=== PATIENT | male | born 1940 | race Asian ===

== ENCOUNTER 2018-04-25 08:54 | Inpatient (IN) | payer MEDICARE, MEDICAID ==
--- NOTE | 2018-04-25 09:29 | ED Physician Chart ---
ED Chief Complaint/HPI - Patient Information Date Seen:: 04/25/18 Time Seen:: 09:20 Chief Complaint:: abnormal labs History of Present Illness:: Patient was sent to the emergency department because of a BUN of 40 and a creatinine of 1.63. Allergies:: Allergies Allergy/AdvReac Type Severity Reaction Status Date / Time No Known Allergies Allergy Verified 04/25/18 09:17 Historian:: Patient Review:: Transfer documents Reviewed ED Review of Systems - Review of Systems General/Constitutional: No fever, No chills Skin: No skin lesions Head: No headache Eyes: No loss of vision ENT: No earache Neck: No neck pain Cardio Vascular: No chest pain Pulmonary: No SOB GI: No nausea, No vomiting, No diarrhea G/U: No dysuria Musculoskeletal: No bone or joint pain Endocrine: No polyuria Psychiatric: Prior psych history Hematopoietic: No bruising Allergic/Immuno: No urticaria Neurological: No syncope, Focal symptoms ED Past Medical History - Past Medical History Past Medical History: CVA/TIA, Other (CVA with left-sided weakness; TIA; anemia ; paranoid schizophrenia) Family History: Other (not available) Social History: Care Facility Surgical History: other (unavailable) Psychiatricy History: Schizophrenia Family Medical History - Family Member Father History Unknown: Yes ED Physical Exam - Physical Examination General/Constitutional: Awake, Well-developed, well-nourished, Alert, No distress Other Gen/Cons comments:: Patient is oriented to the crack month only Head: Atraumatic Eyes: Lids, conjuctiva normal, PERRL Skin: Nl inspection, No rash, No skin lesions, No ecchymosis ENMT: External ears, nose nl, Lips, teeth, gums nl Neck: No nuchal rigidity Respiratory: Nl effort/Exclusion, Clear to Auscultation Cardio Vascular: RRR, No murmur, gallop, rubs GI: No tenderness/rebounding/guarding, No organomegaly, No hernia, Normal BS's Other Extremities comments:: Left arm paralysis Neuro/Psych: No focal deficits (paralysis left arm) ED Labs/Radiology/EKG Results - Lab Results Results: Abnormal Lab Results 04/25/18 09:23 WBC 5.6 RBC 3.67 L Hgb 11.6 L Hct 34.9 L MCV 94.9 MCH 31.5 H MCHC Differential 33.1 RDW 12.4 Plt Count 124 L MPV 8.8 Neutrophils % 65.8 Lymphocytes % 23.2 Monocytes % 10.0 Eosinophils % 0.6 Basophils % 0.4 - Radiology Results Results: Chest x-ray showed prominence of aortic arch, aortic arch calcification and elevation of right hemidiaphragm. Chest x-ray was otherwise normal - EKG Interpretations Rate & Rhythm: normal sinus rhythm with a rate of 73 Gregory: normal Comments:: T flattening in lead 1 and minimal T inversion in lead aVL ED Septic Shock - . Is Septic Shock (SBP<90, OR Lactate>4 mmol\L) present?: No ED Reassessment (Disposition) - Reassessment Reassessment Condition:: Unchanged - Diagnosis Diagnosis:: Renal insufficiency; paranoid schizophrenia; anemia - Patient Disposition Admitted to:: Med/Surg Spoke to:: Siria Santiago Admitting Medical Physician:: Siria Santiago Condition at Disposition:: Stable, Unchanged
[2018-04-25 09:52] LABS: % BASOPHILS 0.4 % (0.0-2.0); % EOSINOPHILS 0.6 % (0.0-5.0); % LYMPHOCYTES 23.2 % (20.0-50.0); % NEUTROPHILS 65.8 % (40.0-80.0); HEMATOCRIT 34.9 % (41.0-60); HEMOGLOBIN 11.6 gm/dL (12-16); LYMPHOCYTE ABSOLUTE 1.3 Th/cmm (1.5-3.0); MEAN CELL VOLUME 94.9 fl (80-99); MEAN CORPUSCULAR HEMOGLOBIN 31.5 pg (27.0-31.0); MEAN CORPUSCULAR HGB CONC 33.1 pg (28.0-36.0); MEAN PLATELET VOLUME 8.8 fl; MONOCYTE ABSOLUTE 0.6 Th/cmm (0.3-1.0); NEUTROPHILE ABSOLUTE 3.7 Th/cmm (1.8-8.0); PLATELET COUNT 124 Th/cmm (150-400); RED BLOOD COUNT 3.67 Mil/cmm (3.80-5.80); RED CELL DISTRIBUTION WIDTH 12.4 % (11.5-20.0); WHITE BLOOD COUNT 5.6 Th/cmm (4.8-10.8)
[2018-04-25 10:11] LABS: BUN - UREA NITROGEN 34 mg/dL (7-25); CALCIUM SERUM 8.9 mg/dL (8.6-10.3); CARBON DIOXIDE 24.7 mEq/L (21.0-31.0); CHLORIDE 106 mEq/L (98-107); CREATININE - SERUM 1.5 mg/dL (0.7-1.3); GLUCOSE 104 mg/dL (70-105); POTASSIUM SERUM 3.7 mEq/L (3.5-5.1); SODIUM SERUM 140 mEq/L (136-145)
--- NOTE | 2018-04-25 10:29 | Diagnostic Imaging Report ---
CHEST X-RAY: AP view INDICATION: Dehydration COMPARISON: None FINDINGS: There is mild prominence of the right paratracheal soft tissues. There is no focal consolidation or pleural effusions The heart is at the upper limits of normal in size. Atherosclerosis is noted. Degenerative changes of the spine are noted. IMPRESSION: No focal consolidation identified Atherosclerotic vascular disease. Right paratracheal soft tissue density probably accentuated by patient rotation and may be due to prominent vasculature in this region. Lymphadenopathy is less likely. Correlation with old exams or follow-up such as CT exam would provide for additional detail and assessment.
[2018-04-25] MEDS ORDERED: Sodium Chloride 0.45% 1,000 ML IV SCH (10:32)
[2018-04-25] MEDS ORDERED: Acetaminophen 500 MG TAB PO PRN ×3 (14:19→15:50)
[2018-04-25] MEDS ORDERED: Non-Formulary Item 1 EA (Acetaminophen [Pain Reliever] 650 MG) PO PRN (15:50)
[2018-04-25] MEDS ORDERED: Fleet Enema 135 mL RC PRN (15:50)
[2018-04-25] MEDS ORDERED: Magnesium Hydroxide (MOM) 30 mL UDC PO PRN (15:50)
[2018-04-25] MEDS ORDERED: Hydrocodone/APAP 10 mg/325 mg Tab PO PRN (15:50)
--- NOTE | 2018-04-25 16:49 | History & Physical ---
ADMIT DATE: 04/25/2018 HISTORY OF PRESENT ILLNESS: This patient is very well known to me. The patient is known to have history of chronic back problem, lumbosacral osteoarthritis, history of kidney stones in the past, also history of increasing renal failure and dehydration, was referred to the Emergency Room at [facility], was admitted with high BUN and creatinine. PAST MEDICAL HISTORY: History of CVA, TIA, anemia, paranoid schizophrenia. PHYSICAL EXAMINATION: GENERAL: Alert, oriented male patient, not in acute distress. VITAL SIGNS: As noted. HEAD: Normal. ENT: Normal. LUNGS: Clear. CARDIOVASCULAR SYSTEM: S1, S2 heard. ABDOMEN: Soft. CENTRAL NERVOUS SYSTEM: The patient is slightly confused. LABORATORY DATA: His white count was normal. BUN and creatinine was high and patient's chest x-ray showed prominent arch. EKG with normal sinus rhythm. DIAGNOSES: Dehydration, acute kidney failure, increasing kidney failure, history of cerebrovascular accident, history of transient ischemic attack in the past, history of arthritis, history of anemia, and history of paranoid schizophrenia. PLAN: The patient is being admitted. We will give him IV fluids and we will have Dr. Jaycob Perla see the patient and will also have the psych doctor, Dr. Rivas see the patient. I will follow the patient. JOB# [id number]
[2018-04-25 19:54] LABS: MAGNESIUM 2.2 mg/dL (1.9-2.7); PHOSPHOROUS 3.3 mg/dL (2.5-5.0)
[2018-04-25] MEDS: Sodium Chloride 0.45% 1,000 ML IV SCH (20:39)
[2018-04-25] MEDS: Ferrous Sulfate 325 MG TAB PO SCH ×2 (20:40→20:50)
[2018-04-25 21:29] LABS: URINE SOURCE CLEAN C
[2018-04-25 21:39] LABS: URINE BILIRUBIN NEGATIVE (NEGATIVE); URINE BLOOD NEGATIVE (NEGATIVE); URINE GLUCOSE (UA) NEGATIVE (NEGATIVE); URINE KETONE NEGATIVE (NEGATIVE); URINE LEUKOCYTE ESTERASE NEGATIVE (NEGATIVE); URINE MICROSCOPIC INDICATED? YES; URINE NITRATE NEGATIVE (NEGATIVE); URINE PROTEIN TRACE mg/dL (NEGATIVE); URINE UROBILINOGEN 0.2 E.U./dL (0.2 - 1.0)
[2018-04-25 21:45] LABS: URINE COLOR YELLOW
[2018-04-25 21:46] LABS: URINE BACTERIA OCCASIONAL /hpf (NONE SEEN); URINE CLARITY CLEAR (CLEAR); URINE EPITHELIAL CELLS NONE SEEN /lpf (FEW); URINE RBC NONE SEEN /hpf (0-5); URINE WBC 0-2 /hpf (0-5)
[2018-04-26 06:03] LABS: % BASOPHILS 0.3 % (0.0-2.0); % EOSINOPHILS 0.2 % (0.0-5.0); % LYMPHOCYTES 17.9 % (20.0-50.0); % MONOCYTES 10.5 % (2.0-10.0); % NEUTROPHILS 71.1 % (40.0-80.0); HEMATOCRIT 35.7 % (41.0-60); LYMPHOCYTE ABSOLUTE 1.2 Th/cmm (1.5-3.0); MEAN CELL VOLUME 93.4 fl (80-99); MEAN CORPUSCULAR HEMOGLOBIN 31.4 pg (27.0-31.0); MEAN CORPUSCULAR HGB CONC 33.6 pg (28.0-36.0); MONOCYTE ABSOLUTE 0.7 Th/cmm (0.3-1.0); NEUTROPHILE ABSOLUTE 4.7 Th/cmm (1.8-8.0); PLATELET COUNT 135 Th/cmm (150-400); RED BLOOD COUNT 3.82 Mil/cmm (3.80-5.80); RED CELL DISTRIBUTION WIDTH 12.3 % (11.5-20.0); WHITE BLOOD COUNT 6.6 Th/cmm (4.8-10.8)
[2018-04-26 06:09] LABS: ALB/GLOB RATIO 0.9 (1.0-1.8); ALBUMIN 3.5 gm/dL (4.2-5.5); ALKALINE PHOSPHATASE 55 U/L (34-104); BILIRUBIN,TOTAL 0.7 mg/dL (0.3-1.0); BUN - UREA NITROGEN 30 mg/dL (7-25); CARBON DIOXIDE 20.7 mEq/L (21.0-31.0); CHLORIDE 105 mEq/L (98-107); CREATININE - SERUM 1.4 mg/dL (0.7-1.3); GLUCOSE 117 mg/dL (70-105); POTASSIUM SERUM 3.7 mEq/L (3.5-5.1); SGOT 36 U/L (13-39); SGPT/ALT 18 U/L (7-52); SODIUM SERUM 137 mEq/L (136-145); TOTAL PROTEIN,SERUM 7.3 gm/dL (6.0-8.3)
[2018-04-26] MEDS ORDERED: LOSARTAN POTASSIUM 100 MG PO SCH (09:00)
[2018-04-26] MEDS ORDERED: Non-Formulary Item 1 EA (Cranberry Fruit Concentrate [Cranberry] 450 MG) PO SCH (09:00)
[2018-04-26] MEDS: Ferrous Sulfate 325 MG TAB PO SCH ×4 (09:08→21:42)
[2018-04-26] MEDS: Aspirin 81mg Chewable Tab PO SCH (09:08)
[2018-04-26] MEDS: Calcium Carb/Vit D 500 mg/200 U Tab PO SCH (09:09)
[2018-04-26] MEDS: Sodium Chloride 0.45% 1,000 ML IV SCH ×2 (11:05→18:47)
[2018-04-26] MEDS ORDERED: Promethazine DM 6.25/15mg-5mL 5 ML SYR PO PRN (13:13)
[2018-04-26] MEDS ORDERED: Albuterol Nebulizer 2.5mg/3mL HHN PRN (13:14)
[2018-04-26] MEDS: cefTRIAXone 1 GM in 0.9% NS 50 ML IV SCH (21:55)
[2018-04-27] MEDS ORDERED: Probiotic Screen MC PRN (08:29)
[2018-04-27] MEDS ORDERED: Influenza Vaccine (65 yr & older) 0.5 ml Syr IM ONE (09:00)
[2018-04-27] MEDS: Ferrous Sulfate 325 MG TAB PO SCH ×3 (09:23→20:46)
[2018-04-27] MEDS: Calcium Carb/Vit D 500 mg/200 U Tab PO SCH (09:23)
[2018-04-27] MEDS: Aspirin 81mg Chewable Tab PO SCH (09:23)
[2018-04-27] MEDS: Lactobacillus Rhamnosus GG 15 Billion CFU CAP.SPRINK PO SCH (09:24)
[2018-04-27] MEDS: cefTRIAXone 1 GM in 0.9% NS 50 ML IV SCH (20:46)
[2018-04-27] MEDS: Sodium Chloride 0.45% 1,000 ML IV SCH (20:52)
--- NOTE | 2018-04-28 00:36 | Progress Notes ---
DATE: 04/27/2018 SUBJECTIVE: The patient was seen in his room. The patient complains of episodic low back pain with good relief from current medication. Otherwise, the patient appears to be comfortable, in no acute distress. OBJECTIVE: VITAL SIGNS: Temperature 97.7, heart rate 66, blood pressure 143/66, respiration 18 and 96% on room air. HEENT: Head is atraumatic and normocephalic. Eyes: Bilateral conjunctivae are clear. Bilateral pupils are equally round and reactive. NECK: Supple. No JVD. CARDIOVASCULAR: S1 and S2, without murmur. PULMONARY: Clear to auscultation. GASTROINTESTINAL: Soft and nontender without guarding. Positive bowel sounds. MUSCULOSKELETAL: No clubbing. No cyanosis noted. ASSESSMENT: 1. Acute kidney failure. 2. Dehydration. 3. History of cerebrovascular accident. 4. Chronic pain syndrome. 5. Anemia. 6. Hypertension. PLAN: We will keep the patient inpatient. I will follow up with window air conditioner installer. We are also going to monitor the patient's electrolytes. Treatment plans were discussed with the patient's nurse. Treatment plans were discussed with Dr. Santiago. JOB# [id number]
[2018-04-28 06:48] LABS: % BASOPHILS 0.2 % (0.0-2.0); % EOSINOPHILS 0.3 % (0.0-5.0); % LYMPHOCYTES 20.9 % (20.0-50.0); % MONOCYTES 8.5 % (2.0-10.0); % NEUTROPHILS 70.1 % (40.0-80.0); HEMOGLOBIN 11.1 gm/dL (12-16); LYMPHOCYTE ABSOLUTE 1.7 Th/cmm (1.5-3.0); MEAN CELL VOLUME 94.2 fl (80-99); MEAN CORPUSCULAR HEMOGLOBIN 30.9 pg (27.0-31.0); MEAN CORPUSCULAR HGB CONC 32.8 pg (28.0-36.0); MEAN PLATELET VOLUME 8.7 fl; MONOCYTE ABSOLUTE 0.7 Th/cmm (0.3-1.0); NEUTROPHILE ABSOLUTE 5.5 Th/cmm (1.8-8.0); PLATELET COUNT 152 Th/cmm (150-400); RED CELL DISTRIBUTION WIDTH 12.2 % (11.5-20.0); WHITE BLOOD COUNT 7.9 Th/cmm (4.8-10.8)
[2018-04-28 07:08] LABS: ALB/GLOB RATIO 0.9 (1.0-1.8); ALBUMIN 3.2 gm/dL (4.2-5.5); ALKALINE PHOSPHATASE 52 U/L (34-104); ANION GAP 16.1 (7.0-16.0); BILIRUBIN,TOTAL 0.5 mg/dL (0.3-1.0); BUN - UREA NITROGEN 28 mg/dL (7-25); CALCIUM SERUM 9.1 mg/dL (8.6-10.3); CARBON DIOXIDE 21.7 mEq/L (21.0-31.0); CHLORIDE 107 mEq/L (98-107); CREATININE - SERUM 1.3 mg/dL (0.7-1.3); GLUCOSE 120 mg/dL (70-105); POTASSIUM SERUM 3.8 mEq/L (3.5-5.1); SGOT 33 U/L (13-39); SGPT/ALT 24 U/L (7-52); SODIUM SERUM 141 mEq/L (136-145); TOTAL PROTEIN,SERUM 6.8 gm/dL (6.0-8.3)
[2018-04-28] MEDS: Aspirin 81mg Chewable Tab PO SCH (08:42)
[2018-04-28] MEDS: Ferrous Sulfate 325 MG TAB PO SCH ×3 (08:42→21:10)
[2018-04-28] MEDS: Lactobacillus Rhamnosus GG 15 Billion CFU CAP.SPRINK PO SCH (08:42)
[2018-04-28] MEDS: Calcium Carb/Vit D 500 mg/200 U Tab PO SCH (08:42)
[2018-04-28] MEDS: Sodium Chloride 0.45% 1,000 ML IV SCH (18:48)
[2018-04-28] MEDS: cefTRIAXone 1 GM in 0.9% NS 50 ML IV SCH (21:09)
[2018-04-29 06:42] LABS: % BASOPHILS 0.3 % (0.0-2.0); % EOSINOPHILS 0.9 % (0.0-5.0); % LYMPHOCYTES 28.4 % (20.0-50.0); % MONOCYTES 9.5 % (2.0-10.0); % NEUTROPHILS 60.9 % (40.0-80.0); EOSINOPHILE ABSOLUTE 0.1 Th/cmm (0.1-0.4); HEMATOCRIT 36.3 % (41.0-60); HEMOGLOBIN 12.1 gm/dL (12-16); LYMPHOCYTE ABSOLUTE 1.7 Th/cmm (1.5-3.0); MEAN CELL VOLUME 93.1 fl (80-99); MEAN CORPUSCULAR HGB CONC 33.3 pg (28.0-36.0); MEAN PLATELET VOLUME 8.6 fl; MONOCYTE ABSOLUTE 0.6 Th/cmm (0.3-1.0); NEUTROPHILE ABSOLUTE 3.6 Th/cmm (1.8-8.0); RED CELL DISTRIBUTION WIDTH 12.3 % (11.5-20.0)
[2018-04-29 06:46] LABS: PLATELET COUNT 184 Th/cmm (150-400)
[2018-04-29 07:05] LABS: ALBUMIN 3.5 gm/dL (4.2-5.5); ALKALINE PHOSPHATASE 57 U/L (34-104); ANION GAP 17.9 (7.0-16.0); BILIRUBIN,TOTAL 0.4 mg/dL (0.3-1.0); BUN - UREA NITROGEN 27 mg/dL (7-25); CALCIUM SERUM 9.5 mg/dL (8.6-10.3); CHLORIDE 107 mEq/L (98-107); CREATININE - SERUM 1.3 mg/dL (0.7-1.3); GLUCOSE 115 mg/dL (70-105); POTASSIUM SERUM 3.9 mEq/L (3.5-5.1); SGOT 32 U/L (13-39); SGPT/ALT 28 U/L (7-52); SODIUM SERUM 141 mEq/L (136-145); TOTAL PROTEIN,SERUM 7.2 gm/dL (6.0-8.3)
[2018-04-29] MEDS: Aspirin 81mg Chewable Tab PO SCH ×2 (08:49→10:04)
[2018-04-29] MEDS: Calcium Carb/Vit D 500 mg/200 U Tab PO SCH ×2 (08:49→08:55)
[2018-04-29] MEDS: Lactobacillus Rhamnosus GG 15 Billion CFU CAP.SPRINK PO SCH (08:49)
[2018-04-29] MEDS: Ferrous Sulfate 325 MG TAB PO SCH ×3 (08:49→13:29)
--- NOTE | 2018-04-29 09:03 | Diagnostic Imaging Report ---
Bilateral carotid Doppler ultrasound exam HISTORY: Dizziness, syncope Sonographic sector images were obtained through the carotid bifurcation regions bilaterally. Associated Doppler data was obtained. The exam of the right side demonstrates generalized intimal thickening through the bifurcation region. No significant focal plaque is seen. Antegrade vertebral artery flow. Velocities and flow ratios are normal (ICC/CCA equals 0.75). The exam of the left side also demonstrates generalized intimal thickening. Mild to moderate focal plaque noted in the common carotid artery and carotid bulb region with slight irregularity. Changes result in an approximate 25-30% narrowing in the carotid bulb area. Antegrade vertebral artery flow. Velocities and flow ratios are normal (ICC/CCA equals 0.44). IMPRESSION: 1. Evidence of mild to moderate atherosclerotic changes on the left side (approximate 30% narrowing). 2. Evidence of mild atherosclerotic changes on the right side.
--- NOTE | 2018-04-29 10:16 | Diagnostic Imaging Report ---
CT scan of the brain without intravenous contrast HISTORY: Stroke, CVA Total DLP equals 772 CTDI equals 40.3 Axial sections were obtained from the base of the skull the vertex. There is enlargement of the ventricular system along with enlargement of cerebral sulci and subarachnoid cisterns reflecting generalized atrophy. Hypodensity seen throughout the supratentorial white matter regions. No mass effect. The findings may reflect chronic small vessel ischemic disease. In addition, several subcentimeter hypodense foci are noted within the right and left parietal white matter regions and within the basal ganglia areas bilaterally. The findings suggest changes with old lacunar infarcts. No acute intracerebral hemorrhage. Again, no mass effect or shift of midline structures. No extra-axial masses or abnormal fluid collections. Mucosal thickening noted within the ethmoid sinuses bilaterally and within the maxillary sinuses. Atherosclerotic calcification seen in the region of the vertebral and basilar arteries at the base of the skull. IMPRESSION: 1. No acute abnormalities 2. Cerebral atrophy 3. Extensive supratentorial white matter changes. The findings may be associated with chronic small vessel ischemic disease 4. Multiple subcentimeter foci within the supratentorial white matter regions as noted above. The findings may be associated with old lacunar infarcts 5. Mucosal thickening within the ethmoid and maxillary sinuses If necessary, an MRI exam would provide additional assessment and evaluation.
--- NOTE | 2018-04-29 16:30 | Internal Medicine Prog Note ---
Internal Medicine Subjective - Subjective Patient seen and examined:: chart reviewed Patient is:: other (c/o lbp) Patient Complaints of:: congestion Per staff patient has:: no adverse event Internal Medicine Objective - Results Result Diagrams: 04/29/18 05:50 04/29/18 05:50 Recent Labs: Laboratory Last Values WBC 6.0 Th/cmm (4.8-10.8) 04/29/18 05:50 RBC 3.90 Mil/cmm (3.80-5.80) 04/29/18 05:50 Hgb 12.1 gm/dL (12-16) 04/29/18 05:50 Hct 36.3 % (41.0-60) L 04/29/18 05:50 MCV 93.1 fl (80-99) 04/29/18 05:50 MCH 31.0 pg (27.0-31.0) 04/29/18 05:50 MCHC Differential 33.3 pg (28.0-36.0) 04/29/18 05:50 RDW 12.3 % (11.5-20.0) 04/29/18 05:50 Plt Count 184 Th/cmm (150-400) D 04/29/18 05:50 MPV 8.6 fl 04/29/18 05:50 Neutrophils % 60.9 % (40.0-80.0) 04/29/18 05:50 Lymphocytes % 28.4 % (20.0-50.0) 04/29/18 05:50 Monocytes % 9.5 % (2.0-10.0) 04/29/18 05:50 Eosinophils % 0.9 % (0.0-5.0) 04/29/18 05:50 Basophils % 0.3 % (0.0-2.0) 04/29/18 05:50 Sodium 141 mEq/L (136-145) 04/29/18 05:50 Potassium 3.9 mEq/L (3.5-5.1) 04/29/18 05:50 Chloride 107 mEq/L (98-107) 04/29/18 05:50 Carbon Dioxide 20.0 mEq/L (21.0-31.0) L 04/29/18 05:50 Anion Gap 17.9 (7.0-16.0) H 04/29/18 05:50 BUN 27 mg/dL (7-25) H 04/29/18 05:50 Creatinine 1.3 mg/dL (0.7-1.3) 04/29/18 05:50 Est GFR ( Amer) TNP 04/29/18 05:50 Est GFR (Non-Af Amer) TNP 04/29/18 05:50 BUN/Creatinine Ratio 20.8 04/29/18 05:50 Glucose 115 mg/dL (70-105) H 04/29/18 05:50 Calcium 9.5 mg/dL (8.6-10.3) 04/29/18 05:50 Phosphorus 3.3 mg/dL (2.5-5.0) 04/25/18 19:11 Magnesium 2.2 mg/dL (1.9-2.7) 04/25/18 19:11 Total Bilirubin 0.4 mg/dL (0.3-1.0) 04/29/18 05:50 AST 32 U/L (13-39) 04/29/18 05:50 ALT 28 U/L (7-52) 04/29/18 05:50 Alkaline Phosphatase 57 U/L (34-104) 04/29/18 05:50 Total Protein 7.2 gm/dL (6.0-8.3) 04/29/18 05:50 Albumin 3.5 gm/dL (4.2-5.5) L 04/29/18 05:50 Globulin 3.7 gm/dL 04/29/18 05:50 Albumin/Globulin Ratio 1.0 (1.0-1.8) 04/29/18 05:50 Urine Source CLEAN C 04/25/18 18:28 Urine Color YELLOW 04/25/18 18:28 Urine Clarity CLEAR (CLEAR) 04/25/18 18:28 Urine pH 6.0 (4.6 - 8.0) 04/25/18 18:28 Ur Specific [place] 1.025 (1.005-1.030) 04/25/18 18:28 Urine Protein TRACE mg/dL (NEGATIVE) 04/25/18 18:28 Urine Glucose (UA) NEGATIVE mg/dL (NEGATIVE) 04/25/18 18:28 Urine Ketones NEGATIVE mg/dL (NEGATIVE) 04/25/18 18:28 Urine Blood NEGATIVE (NEGATIVE) 04/25/18 18:28 Urine Nitrate NEGATIVE (NEGATIVE) 04/25/18 18:28 Urine Bilirubin NEGATIVE (NEGATIVE) 04/25/18 18:28 Urine Urobilinogen 0.2 E.U./dL (0.2 - 1.0) 04/25/18 18:28 Ur Leukocyte Esterase NEGATIVE (NEGATIVE) 04/25/18 18:28 Urine RBC NONE SEEN /hpf (0-5) 04/25/18 18:28 Urine WBC 0-2 /hpf (0-5) 04/25/18 18:28 Ur Epithelial Cells NONE SEEN /lpf (FEW) 04/25/18 18:28 Urine Bacteria OCCASIONAL /hpf (NONE SEEN) 04/25/18 18:28 Urine Osmolality 682 mOsmol/kg 04/25/18 18:28 Ur Random Sodium 101 mmol/L 04/25/18 18:28 Ur Random Potassium 41.0 mmol/L 04/25/18 18:28 Urine Creatinine 139.0 mg/dl (39.0-259.0) 04/25/18 18:28 - Physical Exam Vitals and I&O: Vital Signs Temp 98.0 F 04/29/18 16:03 Pulse 80 04/29/18 16:03 Resp 19 04/29/18 16:03 BP 118/69 04/29/18 16:03 Pulse Ox 95 04/29/18 16:03 Intake & Output 04/28/18 04/29/18 04/29/18 18:59 06:59 18:59 Intake Total 1700 100 Balance 1700 100 Weight (lbs) 74.389 kg 74.389 kg Intake: Intake, IV Amount 1000 Sodium Chloride 0.45% 1, 1000 000 ml @ 50 mls/hr IV . Q20H [facility] Rx#:[id number] Oral 700 100 Other: # Voids 3 2 Weight Source Bedscale Bedscale Active Medications: Current Medications Acetaminophen (Tylenol) 650 mg PO Q6HR PRN PRN Reason: PAIN Stop: 06/24/18 14:16 Last Admin: 04/25/18 15:49 Dose: 650 mg Acetaminophen/Hydrocodone Bitart ([place] 10 Mg/325 Mg) 1 tab PO Q4HR PRN PRN Reason: Pain (Severe) Stop: 06/24/18 15:49 Albuterol Sulfate (Albuterol 2.5mg/3ml Neb Ud) 2.5 mg HHN Q4H PRN PRN Reason: sob Stop: 06/25/18 13:13 Last Admin: 04/27/18 13:01 Dose: 2.5 mg Aspirin (Aspirin Chewable) 81 mg PO DAILY [facility] Stop: 06/25/18 08:59 Last Admin: 04/29/18 10:04 Dose: Not Given Bisacodyl (Dulcolax 10 Mg Supp) 10 mg RC DAILY PRN PRN Reason: Constipation Stop: 06/24/18 15:49 Calcium/Vitamin D (Oscal W/Vitamin D) 1 tab PO DAILY [facility] Stop: 06/25/18 08:59 Last Admin: 04/29/18 08:55 Dose: Not Given Docusate Sodium (Colace) 100 mg PO DAILY [facility] Stop: 06/25/18 08:59 Last Admin: 04/29/18 08:49 Dose: 100 mg Ferrous Sulfate (Iron) 325 mg PO TID [facility] Stop: 06/24/18 20:59 Last Admin: 04/29/18 13:29 Dose: Not Given Sodium Chloride (Nacl 0.45%) 1,000 mls @ 50 mls/hr IV .Q20H [facility] Stop: 06/25/18 18:04 Last Admin: 04/28/18 18:48 Dose: 50 mls/hr Ceftriaxone Sodium 1 gm/ (Sodium Chloride) 50 mls @ 100 mls/hr IV HS [facility] Stop: 06/25/18 20:59 Last Admin: 04/28/18 21:09 Dose: 100 mls/hr Lactobacillus Rhamnosus (Culturelle 15b) 1 each PO DAILY [facility] Stop: 06/26/18 08:59 Last Admin: 04/29/18 08:49 Dose: 1 each Losartan Potassium (Cozaar) 100 mg PO DAILY [facility] Stop: 06/25/18 08:59 Last Admin: 04/29/18 08:49 Dose: 100 mg Magnesium Hydroxide (Milk Of Magnesia) 30 ml PO HS PRN PRN Reason: Constipation Stop: 06/24/18 15:49 Miscellaneous (Probiotic Screen) 1 ea MC PRN PRN PRN Reason: PROTOCOL Stop: 06/26/18 08:28 Olanzapine (Zyprexa) 5 mg PO DAILY [facility]; Protocol Stop: 06/25/18 08:59 Last Admin: 04/29/18 08:49 Dose: 5 mg Olanzapine (Zyprexa) 10 mg PO HS [facility]; Protocol Stop: 06/24/18 20:59 Last Admin: 04/28/18 21:09 Dose: 10 mg Promethazine HCl/Dextromethorphan (Phenergan Dm 6.25/15mg-5 Ml) 10 ml PO Q6HR PRN PRN Reason: Cough Stop: 06/25/18 13:12 Sodium Phosphate (Fleet Enema) 135 ml RC PRN PRN PRN Reason: Constipation Stop: 06/24/18 15:49 Trazodone HCl (Desyrel) 50 mg PO HS [facility]; Protocol Stop: 06/24/18 20:59 Last Admin: 04/28/18 21:09 Dose: 50 mg General: other (c/o lbp), no weak HEENT: NC/AT Neck: Supple Lungs: CTAB Cardiovascular: RRR, Normal S1, Normal S2 Abdomen: soft Extremities: clear Neurological: no change Internal Medicine Assmt/Plan - Assessment Assessment: acute kidney failure dehydration h/o cva chronic pain syndrome anemia htn - Plan Plan: as per order sheet Nutritional Asmnt/Malnutr-PDOC - Dietary Evaluation Malnutrition Findings (Please click <Entered> for more info): Nutritional Asmnt/Malnutrition Start: 04/29/18 14: 04 Text: Status: Complete Freq: Protocol: Document 04/29/18 14:04 LCHENG (Rec: 04/29/18 14:15 [email or web address] [email or web address]) Nutritional Asmnt/Malnutrition Patient General Information Nutritional Screening Moderate Risk Diagnosis renal failure Pertinent Medical Hx/Surgical Hx CVA/TIA, anemia, paranoid schizophrenia Subjective Information Pt seen sitting in keo-chair eating lunch by himself at time of visit. Pt appeared to chew food slowly. Pt has some missing teeth noted. Pt is confused, not able to participate in communication. Per EMR, PO intake 25% since admitted. Current Diet Order/ [facility], EMMETT Pertinent Medications oscal w/vit D Pertinent Labs 04/29 BUN 27, Glucose 115 1/6 BUN 28, Glucose 120 1/4 BUN 30, Cr 1.4, Glucose 117 Nutritional Hx/Data Height 1.7 m Height (Calculated Centimeters) 170.2 Current Weight (lbs) 74.389 kg Weight (Calculated Kilograms) 74.4 Weight (Calculated Grams) 80435.1 [place] Body Weight 148 Body Mass Index (BMI) 25.7 Weight Status Overweight GI Symptoms GI Symptoms None Last BM none noted Difficult in: None Skin Integrity/Comment: intact Current %PO Poor (25-49%) Estimated Nutritional Goals BEE in Kcals: Using Current wt Calories/Kcals/Kg 25-30 Kcals Calculated 8328-5200 Protein: Using Current wt Protein g/k.8-1 Protein Calculated 60-75 Fluid: ml 1875-2250ml (1ml/kcal) Nutritional Problem 2. Problem Problem chewing difficulty Etiology missing teeth and confusion Signs/Symptoms: pt chewing food slowly and PO intake 25% 1. Problem Problem altered nutrition related labs Etiology renal dysfunction Signs/Symptoms: BUN 27 Malnutrition Alert Is there a minimum of two criteria No selected? Query Text:Check all the applicable criteria. A minimum of two criteria are recommended for diagnosis of either severe or non-severe malnutrition. Malnutrition Related to Morbid Obesity Malnutrition related to morbid obesity No Intervention/Recommendation Comments 1. Downgrade food texture to [facility] soft ground d/t pt having chewing difficulty. Continue with EMMETT diet. Nurses to assist pt with meals as needed . 2. Monitor PO intake, wt, labs and skin integrity 3. If PO intake continue <50%, consider adding nutrition oral supplements. 4. F/U as high risk in 2-3 days, 05/01-05/02 Expected Outcomes/Goals Expected Outcomes/Goals 1. PO intake to improve and meet at least 75% of nutritional needs. 2. Wt stability, skin to remain intact, labs to approach WNL.
--- NOTE | 2018-04-29 16:43 | Consultation ---
Consult Note - Consult Note Service Date: 04/29/18 Referring Physician: Siria Santiago Consult Note: PHYSICIAN Consultation Note: Date of Admission: 04/25/18 Purpose of Consultation: Chief Complaint: History of Present Illness: Patient KING WHALEN was admitted to location Medical[facility]Surgical Unit I with RENAL FAILURE. CREATININE WAS NOTED TO BE 1.5 UPON ADMISSION AND IS NOW 1.3 WHICH IS LIKELY PATIENT'S BASELINE WITH IVF. DIFFICULT TO ASCERTAIN BUT DOES NOT APPEAR TO HAVE H/O NSAID OR HERBAL MEDICATION USE. Past Medical History: Diagnoses ANEMIA, UNSPECIFIED (04/25/18) DEHYDRATION (04/25/18) PARANOID SCHIZOPHRENIA (04/25/18) UNSPECIFIED OSTEOARTHRITIS, UNSPECIFIED SITE (04/25/18) ACUTE KIDNEY FAILURE, UNSPECIFIED (04/25/18) WEAKNESS (04/25/18) PRSNL HX OF TIA (TIA), AND CEREB INFRC W/O RESID DEFICITS (04/25/18) Allergies Allergy/AdvReac Type Severity Reaction Status Date / Time No Known Allergies Allergy Verified 04/25/18 09:17 Vital Signs Temp 98.0 F 04/29/18 16:03 Pulse 80 04/29/18 16:03 Resp 19 04/29/18 16:03 BP 118/69 04/29/18 16:03 Pulse Ox 95 04/29/18 16:03 Intake & Output 04/28/18 04/29/18 04/29/18 18:59 06:59 18:59 Intake Total 1700 100 Balance 1700 100 Weight (lbs) 74.389 kg 74.389 kg Intake: Intake, IV Amount 1000 Sodium Chloride 0.45% 1, 1000 000 ml @ 50 mls/hr IV . Q20H RANDOLPH Rx#:[id number] Oral 700 100 Other: # Voids 3 2 Weight Source Bedscale Bedscale Laboratory Results - last 24 hr 04/29/18 04/29/18 05:50 05:50 WBC 6.0 RBC 3.90 Hgb 12.1 Hct 36.3 L MCV 93.1 MCH 31.0 MCHC Differential 33.3 RDW 12.3 Plt Count 184 D MPV 8.6 Neutrophils % 60.9 Lymphocytes % 28.4 Monocytes % 9.5 Eosinophils % 0.9 Basophils % 0.3 Sodium 141 Potassium 3.9 Chloride 107 Carbon Dioxide 20.0 L Anion Gap 17.9 H BUN 27 H Creatinine 1.3 Est GFR ( Amer) TNP Est GFR (Non-Af Amer) TNP BUN/Creatinine Ratio 20.8 Glucose 115 H Calcium 9.5 Total Bilirubin 0.4 AST 32 ALT 28 Alkaline Phosphatase 57 Total Protein 7.2 Albumin 3.5 L Globulin 3.7 Albumin/Globulin Ratio 1.0 Home Medication Medication Instructions Recorded Type Acetaminophen [Pain Relief Extra 500 mg PO Q6H PRN 04/25/18 History Strength] Acetaminophen [Pain Reliever] 2 tab PO Q8H PRN 04/25/18 History Acetaminophen [Pain Reliever] 650 mg PO Q6H PRN 04/25/18 History Aspirin [Aspirin Chewable] 1 tab PO DAILY 04/25/18 History Bisacodyl [Dulcolax 10 Mg Supp] 10 mg RC DAILY PRN 04/25/18 History Calcium Carbonate/Vitamin D3 1 tab PO DAILY 04/25/18 History [Calcium 500-Vit D3 200 Tablet] Cranberry Fruit Concentrate 450 mg PO DAILY 04/25/18 History [Cranberry] Docusate Sodium [Colace] 100 mg PO DAILY 04/25/18 History Ferrous Sulfate [Iron] 1 tab PO TID 04/25/18 History Fleet Enema 135 ml RC PRN PRN 04/25/18 History Hydrocodone/APAP 10 mg/325 mg 1 tab PO Q4HR PRN 04/25/18 History [[place] 10 mg/325 mg] Losartan Potassium 100 mg PO DAILY 04/25/18 History Magnesium Hydroxide [Milk of 30 ml PO HS PRN 04/25/18 History Magnesia] OLANZapine [ZyPREXA] 5 mg PO DAILY 04/25/18 History OLANZapine [ZyPREXA] 10 mg PO HS 04/25/18 History Trazodone HCl 50 mg PO HS 04/25/18 History Current Medications Generic Name Dose Route Start Last Admin Trade Name Freq PRN Reason Stop Dose Admin Acetaminophen 650 mg 04/25/18 14:20 04/25/18 15:49 Tylenol PO 06/24/18 14:16 650 mg Q6HR PRN Administration PAIN Acetaminophen/Hydrocodone Bitart 1 tab 04/25/18 15:50 [place] 10 Mg/325 Mg PO 06/24/18 15:49 Q4HR PRN Pain (Severe) Albuterol Sulfate 2.5 mg 04/26/18 13:14 04/27/18 13:01 Albuterol 2.5mg/3ml Neb Ud HHN 06/25/18 13:13 2.5 mg Q4H PRN Administration sob Aspirin 81 mg 04/26/18 09:00 04/29/18 10:04 Aspirin Chewable PO 06/25/18 08:59 Not Given DAILY RANDOLPH Bisacodyl 10 mg 04/25/18 15:50 Dulcolax 10 Mg Supp RC 06/24/18 15:49 DAILY PRN Constipation Calcium/Vitamin D 1 tab 04/26/18 09:00 04/29/18 08:55 Oscal W/Vitamin D PO 06/25/18 08:59 Not Given DAILY RANDOLPH Docusate Sodium 100 mg 04/26/18 09:00 04/29/18 08:49 Colace PO 06/25/18 08:59 100 mg DAILY RANDOLPH Administration Ferrous Sulfate 325 mg 04/25/18 21:00 04/29/18 13:29 Iron PO 06/24/18 20:59 Not Given TID RANDOLPH Sodium Chloride 1,000 mls @ 50 mls/hr 04/26/18 18:05 04/28/18 18:48 Nacl 0.45% IV 06/25/18 18:04 50 mls/hr .Q20H RANDOLPH Administration Ceftriaxone Sodium 1 gm/ 50 mls @ 100 mls/hr 04/26/18 21:00 04/28/18 21:09 Sodium Chloride IV 06/25/18 20:59 100 mls/hr HS RANDOLPH Administration Lactobacillus Rhamnosus 1 each 04/27/18 09:00 04/29/18 08:49 Culturelle 15b PO 06/26/18 08:59 1 each DAILY RANDOLPH Administration Losartan Potassium 100 mg 04/26/18 09:00 04/29/18 08:49 Cozaar PO 06/25/18 08:59 100 mg DAILY RANDOLPH Administration Magnesium Hydroxide 30 ml 04/25/18 15:50 Milk Of Magnesia PO 06/24/18 15:49 HS PRN Constipation Miscellaneous 1 ea 04/27/18 08:29 Probiotic Screen MC 06/26/18 08:28 PRN PRN PROTOCOL Olanzapine 5 mg 04/26/18 09:00 04/29/18 08:49 Zyprexa PO 06/25/18 08:59 5 mg DAILY RANDOLPH Administration Protocol Olanzapine 10 mg 04/25/18 21:00 04/28/18 21:09 Zyprexa PO 06/24/18 20:59 10 mg HS RANDOLPH Administration Protocol Promethazine HCl/Dextromethorphan 10 ml 04/26/18 13:13 Phenergan Dm 6.25/15mg-5 Ml PO 06/25/18 13:12 Q6HR PRN Cough Sodium Phosphate 135 ml 04/25/18 15:50 Fleet Enema RC 06/24/18 15:49 PRN PRN Constipation Trazodone HCl 50 mg 04/25/18 21:00 04/28/18 21:09 Desyrel PO 06/24/18 20:59 50 mg HS RANDOLPH Administration Protocol Review of Systems: A 12 point ROS was reviewed with the pertinent positive and negatives noted in the HPI. Social History Smoking Status Never smoker Drug Use No Alcohol Use No Family Medical History Family Medical History Start: 04/25/18 11: 02 Freq: ONCE Status: Active Protocol: Document 04/25/18 14:43 PTSAI (Rec: 04/25/18 14:43 [email or web address] [id number]) Family Medical History Father History Unknown Yes Physical Exam: General: NO DISTRESS, AWAKE, ALERT Cardio: S1 S2 REGULAR NO RUB Respiratory: CLEAR Extremities: NO EDEMA Assessment: 1. NONOLIGURIC LACIE SECONDARY TO DEHYDRATION, IMPROVED. CONT GENTLE IV HYDRATION 2. HYPERTENSION, STABLE. CONT LOSARTAN 3. ANEMIA, UNSPECIFIED, STABLE. CONT FERROUS SULFATE 4. PARANOID SCHIZOPHRENIA, STABLE. CONT CURRENT REGIMEN 5. OLD TIA, CVA STABLE. CONT ASA Plan: SEE ABOVE THANK YOU, GIVEN IMPROVEMENT IN RENAL FUNCTION, WILL SEE PRN Signed, Micki Moreno M.D. [id number]
--- NOTE | 2018-04-30 00:06 | Consultation ---
DATE OF CONSULTATION: 04/29/2018 IDENTIFYING INFORMATION: The patient is an 78-year-old male. REASON FOR CONSULTATION AND HISTORY OF PRESENT ILLNESS: I was asked to see this patient who has a history of paranoid schizophrenia. The patient with history also of chronic back problems, lumbosacral pain, osteoarthritis, history of kidney stones in the past, increasing renal failure, dehydration, referred and was admitted because of high BUN and creatinine. The patient was a poor historian with a history of CVA, TIA, and anemia. PAST PSYCHIATRIC HISTORY: Chronic paranoid schizophrenia. The patient himself was a poor historian, unable to tell me the date, where he is, why he is here, is trying to use his hands, though he speaks Frisian. He is not acting anyway dangerous. ALLERGIES: The patient has known drug allergies. The patient's medical condition as described before. MEDICATIONS: The patient is currently on olanzapine 5 mg daily and 10 mg at bedtime with no side effects. Trazodone 50 mg at bedtime. FAMILY AND SOCIAL HISTORY: Unobtainable. MENTAL STATUS EXAMINATION: The patient was appropriately dressed, not very well groomed, unable to participate in a meaningful conversation. He was trying to use his fingers to tell me how old he is and was making circles, unable to express himself, unable to test his memory, concentration. He is not acting anyway dangerous, sleeping well, eating well, compliant with medication with no side effects. His long and short term memory is poor. Insight and judgment are questionable. Unable to answer questions regarding suicide, homicide or hallucination. IMPRESSION: History of chronic paranoid schizophrenia. PLAN: I would recommend to continue the Zyprexa. If the patient is acting out, he may need to be transferred to [facility]. Thank you very much for allowing me to participate in the care of this most interesting gentleman. [facility]# [id number]
== END 2018-04-29 20:40 | DRG 871 ==
LOC: ER 08:54 → MSI 10:25
PROVIDERS: ADMIT Internal Medicine; ATTEND Internal Medicine
DX: A41.9 Sepsis, unspecified organism (principal); G92 Toxic encephalopathy; N17.9 Acute kidney failure, unspecified; F20.0 Paranoid schizophrenia; E86.0 Dehydration; I12.9 Hypertensive chronic kidney disease with stage 1 through stage 4 chronic kidney disease, or unspecified chronic kidney disease; N18.3 Chronic kidney disease, stage 3 (moderate); M19.90 Unspecified osteoarthritis, unspecified site; D64.9 Anemia, unspecified; N28.9 Disorder of kidney and ureter, unspecified; G89.4 Chronic pain syndrome; M54.9 Dorsalgia, unspecified; Z87.442 Personal history of urinary calculi; Z86.73 Personal history of transient ischemic attack (TIA), and cerebral infarction without residual deficits; Z23 Encounter for immunization
CPT/HCPCS: 36415-UA; 70450-TC; 71045-TC; 80048-TC; 80053-TC; 81001-TC; 82436-90; 82570-TC; 83735-TC; 83935-90; 84100-TC; 84133-TC; 84300-TC; 85025-TC; 87070; 87086-90; 93005; 93880-TC; 94760; J0696; J7030; J7051; J7613; Z7610

== ENCOUNTER 2018-05-03 15:32 | Inpatient (IN) | payer MEDICARE, MEDICAID ==
[2018-05-03] MEDS ORDERED: Lactated Ringer 1,000 ML IV ONE (16:16)
[2018-05-03 16:44] LABS: % BASOPHILS 0.4 % (0.0-2.0); % EOSINOPHILS 1.2 % (0.0-5.0); % LYMPHOCYTES 21.4 % (20.0-50.0); % MONOCYTES 6.4 % (2.0-10.0); % NEUTROPHILS 70.6 % (40.0-80.0); EOSINOPHILE ABSOLUTE 0.1 Th/cmm (0.1-0.4); HEMATOCRIT 33.1 % (41.0-60); HEMOGLOBIN 10.9 gm/dL (12-16); MEAN CELL VOLUME 93.3 fl (80-99); MEAN CORPUSCULAR HEMOGLOBIN 30.8 pg (27.0-31.0); MEAN CORPUSCULAR HGB CONC 33.1 pg (28.0-36.0); MEAN PLATELET VOLUME 7.6 fl; MONOCYTE ABSOLUTE 0.6 Th/cmm (0.3-1.0); NEUTROPHILE ABSOLUTE 6.5 Th/cmm (1.8-8.0); PLATELET COUNT 279 Th/cmm (150-400); RED BLOOD COUNT 3.55 Mil/cmm (3.80-5.80); RED CELL DISTRIBUTION WIDTH 12.4 % (11.5-20.0); WHITE BLOOD COUNT 9.2 Th/cmm (4.8-10.8)
[2018-05-03 17:26] LABS: ALB/GLOB RATIO 0.9 (1.0-1.8); ALBUMIN 3.5 gm/dL (4.2-5.5); ALKALINE PHOSPHATASE 56 U/L (34-104); ANION GAP 13.6 (7.0-16.0); BILIRUBIN,TOTAL 0.5 mg/dL (0.3-1.0); BUN - UREA NITROGEN 43 mg/dL (7-25); CALCIUM SERUM 9.8 mg/dL (8.6-10.3); CARBON DIOXIDE 27.3 mEq/L (21.0-31.0); CHLORIDE 109 mEq/L (98-107); CREATININE - SERUM 1.6 mg/dL (0.7-1.3); GLUCOSE 122 mg/dL (70-105); MAGNESIUM 2.7 mg/dL (1.9-2.7); PHOSPHOROUS 3.6 mg/dL (2.5-5.0); POTASSIUM SERUM 3.9 mEq/L (3.5-5.1); SGOT 29 U/L (13-39); SGPT/ALT 30 U/L (7-52); SODIUM SERUM 146 mEq/L (136-145); TOTAL PROTEIN,SERUM 7.4 gm/dL (6.0-8.3)
--- NOTE | 2018-05-03 20:02 | ED Physician Chart ---
ED Chief Complaint/HPI - Patient Information Date Seen:: 05/03/18 Time Seen:: 06:45 Chief Complaint:: PARATRACHEAL MASS History of Present Illness:: 78 YR OLD MALE HERE EW ONSET PARATRACHEAL MASS WITH HX OF KIDNEY FAILURE ANEMIA DEPRESSION SCHIZO HYPERTENSION DYSPHAGIA WHEEL CHAIR BOUND CVA CHRONIC LBP Allergies:: Allergies Allergy/AdvReac Type Severity Reaction Status Date / Time No Known Allergies Allergy Verified 04/25/18 09:17 Vitals:: Vital Signs - 8 hr 05/03/18 05/03/18 15:35 17:38 Temp 97.2 F 98.2 F HR 75 76 RR 19 22 BP 106/59 115/63 O2 Sat % 95 94 ED Review of Systems - Review of Systems General/Constitutional: No fever Head: No headache Eyes: No loss of vision ENT: No earache Neck: No neck pain Pulmonary: No SOB GI: No vomiting, No diarrhea G/U: No dysuria Musculoskeletal: Back pain Endocrine: No polyuria (SCHIZO) ED Past Medical History - Past Medical History Past Medical History: CVA/TIA, Other (SCHIZO ANEMIA DYSPHAGIA BACK PAIN KIDNEY STONES RENAL FAILURE) Family Medical History - Family Member Father History Unknown: Yes ED Physical Exam - Physical Examination General/Constitutional: Awake Head: Atraumatic Other Skin comments:: SKIN SWEATY Respiratory: Nl effort/Exclusion ED Labs/Radiology/EKG Results - Lab Results Results: Laboratory Tests 05/03/18 05/03/18 05/03/18 16:35 16:35 16:35 WBC 9.2 RBC 3.55 L Hgb 10.9 L Hct 33.1 L MCV 93.3 MCH 30.8 MCHC Differential 33.1 RDW 12.4 Plt Count 279 MPV 7.6 Neutrophils % 70.6 Lymphocytes % 21.4 Monocytes % 6.4 Eosinophils % 1.2 Basophils % 0.4 Sodium 146 H Potassium 3.9 Chloride 109 H Carbon Dioxide 27.3 Anion Gap 13.6 BUN 43 H Creatinine 1.6 H Est GFR ( Amer) TNP Est GFR (Non-Af Amer) TNP BUN/Creatinine Ratio 26.9 Glucose 122 H Whole Bld Lactic Acid 1.11 Calcium 9.8 Phosphorus 3.6 Magnesium 2.7 Total Bilirubin 0.5 AST 29 ALT 30 Alkaline Phosphatase 56 Total Protein 7.4 Albumin 3.5 L Globulin 3.9 Albumin/Globulin Ratio 0.9 L ED Assessment - Assessment General Assessment: PARATRACHEAL MASSES ED Septic Shock - . Is Septic Shock (SBP<90, OR Lactate>4 mmol\L) present?: No - <6hrs of presentation: Vital Signs: Vital Signs - 8 hr 05/03/18 05/03/18 15:35 17:38 Temp 97.2 F 98.2 F HR 75 76 RR 19 22 BP 106/59 115/63 O2 Sat % 95 94 ED Reassessment (Disposition) - Reassessment Reassessment:: PARATRACHEal anemia - Diagnosis Diagnosis:: as above - Patient Disposition Discharge/Transfer:: Acute Care w/in this hosp Condition at Disposition:: Stable
[2018-05-03 23:15] VITALS: BP 121/80
[2018-05-04] MEDS: D5-0.45NS 1,000 ML IV SCH ×3 (01:10→22:57)
[2018-05-04 05:49] LABS: % BASOPHILS 0.2 % (0.0-2.0); % EOSINOPHILS 1.1 % (0.0-5.0); % LYMPHOCYTES 18.1 % (20.0-50.0); % MONOCYTES 6.1 % (2.0-10.0); % NEUTROPHILS 74.5 % (40.0-80.0); EOSINOPHILE ABSOLUTE 0.1 Th/cmm (0.1-0.4); HEMOGLOBIN 11.7 gm/dL (12-16); LYMPHOCYTE ABSOLUTE 1.7 Th/cmm (1.5-3.0); MEAN CELL VOLUME 93.4 fl (80-99); MEAN CORPUSCULAR HEMOGLOBIN 30.3 pg (27.0-31.0); MEAN CORPUSCULAR HGB CONC 32.4 pg (28.0-36.0); MEAN PLATELET VOLUME 8.1 fl; MONOCYTE ABSOLUTE 0.6 Th/cmm (0.3-1.0); PLATELET COUNT 280 Th/cmm (150-400); RED BLOOD COUNT 3.85 Mil/cmm (3.80-5.80); RED CELL DISTRIBUTION WIDTH 12.4 % (11.5-20.0); WHITE BLOOD COUNT 9.4 Th/cmm (4.8-10.8)
[2018-05-04 06:11] LABS: ANION GAP 13.2 (7.0-16.0); BUN - UREA NITROGEN 40 mg/dL (7-25); CALCIUM SERUM 9.4 mg/dL (8.6-10.3); CARBON DIOXIDE 26.6 mEq/L (21.0-31.0); CHLORIDE 107 mEq/L (98-107); CHOLESTEROL 170 mg/dL (<200); CREATININE - SERUM 1.4 mg/dL (0.7-1.3); GLUCOSE 171 mg/dL (70-105); HDL -HIGH DENSITY LIPOPROTEIN 41 mg/dL (23-92); POTASSIUM SERUM 3.8 mEq/L (3.5-5.1); SODIUM SERUM 143 mEq/L (136-145); TRIGLYCERIDES 82 mg/dL (<150)
--- NOTE | 2018-05-04 08:55 | Diagnostic Imaging Report ---
CT scan of the chest without intravenous contrast HISTORY: Mass. Total DLP equals 210 CTDI equals 6.3 Axial sections were obtained from a level above the clavicles down to level below the diaphragm. The heart is enlarged. Coronary artery and atherosclerotic vascular calcination is noted. There is dilatation of the ascending aorta and a portion of the aortic arch. Maximum diameter equals approximately 3.8 cm. There is tortuosity of the brachiocephalic vessels within the right paratracheal region associated without sclerotic vascular calcification. No definite abnormal masses are seen. Evaluation the hilar structures limited due to the absence of intravenous contrast. No definite abnormal masses. No abnormal focal pulmonary parenchymal processes. Nonspecific accentuation of the interstitial markings in the lower lobes is seen. No pleural fluid. Limited sections below the diaphragm demonstrate colonic diverticula. IMPRESSION: 1. No acute abnormalities 2. Tortuous brachiocephalic vessels. No abnormal masses identified 3. Generalized dilatation of the ascending aorta and proximal aortic arch (3.8 cm). 4. Accentuation of the lower interstitial lung markings probably chronic. 5. Cardiomegaly with coronary artery and atherosclerotic calcification 6. Diverticulosis
--- NOTE | 2018-05-04 08:56 | Diagnostic Imaging Report ---
Portable chest x-ray HISTORY: Shortness of breath The heart size appears generous. No acute focal pulmonary processes. Degenerative changes seen to the spine. Density in the right paratracheal region consistent with tortuous brachiocephalic vessels. IMPRESSION: 1. No acute abnormalities 2. Cardiomegaly
[2018-05-04] MEDS ORDERED: Acetaminophen 500 MG TAB PO PRN ×2 (11:23→13:51)
[2018-05-04] MEDS ORDERED: Fleet Enema 135 mL RC PRN (13:51)
[2018-05-04] MEDS ORDERED: Hydrocodone/APAP 10 mg/325 mg Tab PO PRN (13:51)
[2018-05-04] MEDS ORDERED: Magnesium Hydroxide (MOM) 30 mL UDC PO PRN (13:51)
[2018-05-04] MEDS ORDERED: Promethazine DM 6.25/15mg-5mL 5 ML SYR PO PRN (13:51)
--- NOTE | 2018-05-04 17:11 | History & Physical ---
ADMIT DATE: 05/03/2018 HISTORY OF PRESENT ILLNESS: This patient is very well known to me. The patient is a resident of [facility]. The patient known to have history of multiple problems. The patient known to have history of prior CVA, TIA, history of dysphagia, history of back pain, history of kidney stones, history of renal failure. The patient also known to have history of low back pain, history of osteoarthritis, diverticulosis, history of cardiomegaly, dysphagia, anemia. Apparently, the patient recently was admitted with worsening renal failure, which seemed kind of improved and was sent back, but the patient has drastically deteriorated to the point that he is not eating well and he is again dehydrated and increasing renal failure and also the x-ray showed paratracheal mass. The patient was seen in the Emergency Room and was admitted. The patient general condition is totally deteriorated and he is unable to walk. PAST MEDICAL HISTORY: As enumerated above. PAST SURGICAL HISTORY: As enumerated above. FAMILY HISTORY: Unremarkable. PHYSICAL EXAMINATION: GENERAL: The patient on examination alert, oriented, elderly male patient, seems to be dehydrated and malnourished. VITAL SIGNS: On initial exam, temperature 97, heart rate of 75, respiratory rate was 19, and blood pressure 106/95 after the fluid went up a little bit. HEAD: Normal. ENT: Normal. LUNGS: Bilaterally decreased. CARDIOVASCULAR SYSTEM: S1, S2 heard. ABDOMEN: Soft. EXTREMITIES: Revealed no peripheral edema. LABORATORY DATA: He has dehydration. His sodium is 146, chloride 109, BUN 46, creatinine is 1.6 indicating prerenal azotemia, acute kidney injury, and anemia. DIAGNOSES: Acute dehydration, worsening renal failure, failure to thrive, history of paratracheal mass need to be worked up, history of cerebrovascular accident, transient ischemic attack, history of anemia and dysphagia, kidney stones, history of schizophrenia, low back pain, osteoarthritis, diverticulosis, cardiomegaly. PLAN: The patient is going to be admitted. I will go ahead and call Dr. Bess to workup for the malignancy as well as for anemia. I will call Dr. Daley to treat and I will also gave orders for treating his low blood pressure as well as prerenal azotemia and kidney failure. We will do the CAT scan of the chest and I will follow the patient. JOB# [id number]
--- NOTE | 2018-05-04 19:13 | Consultation ---
DATE OF CONSULTATION: 05/04/2018 HEMATOLOGY AND ONCOLOGY CONSULTATION REFERRING PHYSICIAN: Dr. Santiago. REASON FOR CONSULTATION: Paratracheal mass. HISTORY OF PRESENT ILLNESS: The patient is an 78-year-old male who was admitted with renal failure and paratracheal mass; therefore, I was asked to evaluate. PAST MEDICAL HISTORY: Chronic kidney disease, depression, schizophrenia, hypertension, dysphagia, CVA, and chronic anemia. FAMILY HISTORY: Unknown. MEDICATIONS: Tylenol, [place], aspirin, aztreonam, Dulcolax, Os-Yaakov, Colace, iron, Cozaar, Zyprexa, Desyrel, and trazodone. PHYSICAL EXAMINATION: GENERAL: The patient is not in distress. VITAL SIGNS: Temperature 97, blood pressure 106/60, pulse 75, oxygen saturation 95%. HEENT: Atraumatic. NECK: No lymphadenopathy. CHEST: Scattered rhonchi. ABDOMEN: Soft. EXTREMITIES: No edema. LABORATORY DATA: White count 9.4, hemoglobin 11.7, platelets 218. Chemistry: Creatinine 1.4. Liver functions normal. TSH is 0.9. ASSESSMENT: CT scan showed dilatation of the ascending aorta and the aortic arch diameter 3.8 cm with tortuosity of the vessels within the right paratracheal region, accounting for the paratracheal fullness, but no paratracheal mass was reported per se. The patient has mild anemia and chronic kidney disease, most likely anemia of chronic kidney disease. I will obtain anemia workup for confirmation. Thank you Dr. Santiago for the opportunity to participate in the care of this interesting case with you. JOB# [id number]
--- NOTE | 2018-05-05 04:02 | Consultation ---
DATE OF CONSULTATION: 05/04/2018 REASON FOR CONSULTATION: Worsening kidney function, electrolyte imbalance, and fluid management. HISTORY OF PRESENT ILLNESS: This is an 78-year-old male with past medical history of acute kidney injury. He was brought in because of possible paratracheal mass. Two days prior to admission, the patient had a chest x-ray done. This revealed possible right paratracheal density. Labs drawn the same day showed a BUN/creatinine of 41/1.53. He was brought to the Emergency Room. Chest x-ray revealed right paratracheal density consistent with tortuous brachiocephalic vessels. CT scan of the chest confirmed tortuous brachiocephalic vessels and generalized dilatation of ascending aortic and proximal aortic arch. His BUN/creatinine on admission were 43/1.6. He was hydrated and his BUN/creatinine improved to 40/1.4 the following day. There was no mention of any nausea and vomiting as well as diarrhea. PAST MEDICAL HISTORY: 1. Status post acute kidney injury. The patient was admitted about a week ago due to elevated BUN/creatinine secondary to dehydration. He was hydrated. He was seen by the mill recorder and hydrated aggressively. His kidney function stabilized and was discharged. 2. Status post cerebrovascular accident. 3. Renal calculi. 4. Anemia of chronic disease. 5. Depression. 6. Paranoid schizophrenia. 7. Essential hypertension. 8. Degenerative joint disease. CURRENT MEDICATIONS: He is currently on acetaminophen, aspirin, aztreonam, bisacodyl, lactated Ringer's. ALLERGIES: No known drug allergies. SOCIAL AND FAMILY HISTORY: I was not able to obtain directly from the patient because he remains nonverbal at the present time. REVIEW OF SYSTEMS: Again, I was not able to decipher directly from the patient. PHYSICAL EXAMINATION: GENERAL: The patient is stuporous, but comfortable. VITAL SIGNS: His blood pressure is 148/91, pulse is 93, temperature 97.3 degrees. SKIN: Poor turgor, warm, no rash, no jaundice appreciated. HEENT: Head normocephalic, atraumatic. Eyes, barely opens his eyes. I was not able to assess extraocular muscles movement. Her pupils are equal, round, reactive to light and accommodates. Anicteric sclerae. Pale conjunctivae. Nose, midline nasal septum. Mouth: Dry mucosa. Poor dentition. NECK: Supple, no adenopathy, no thyromegaly, no bruits. Trachea palpated in the midline. CHEST AND CARDIOVASCULAR: S1, S2. No rub, murmur nor gallop appreciated. Point of maximal impulse fifth intercostal space, left midclavicular line. No abdominal or femoral bruits appreciated. LUNGS: Equal expansion, no use of accessory muscles. No supraclavicular retractions. Decreased breath sounds, few rhonchi, but no rales nor wheezes appreciated. No mass palpated in the anterior cervical area. ABDOMEN: Flat, soft, positive for bowel sounds. No bruits either diastolic or systolic. RECTAL: Deferred. GENITOURINARY: Normal appearing male genitalia. MUSCULOSKELETAL: No effusions present in his joints, but unable to assess his range of motion. EXTREMITIES: No evidence of edema, cyanosis nor clubbing with palpable femoral, popliteal and dorsalis pedis pulses. NEUROLOGIC: The patient is stuporous, remains nonverbal, so I was not able to pursue further my neuro exam. LABORATORY DATA: White count 9.4, hemoglobin 11.7, hematocrit 36, platelets 280, polys 74.5%. Sodium 143, potassium 3.8, chloride 107, BUN 40, creatinine 1.4, glucose 171, calcium 9.8, phosphorus 3.6, magnesium 2.7. IMPRESSION: 1. Acute kidney injury. The patient has recurring prerenal azotemia. He again came in with acute kidney injury due to dehydration. This is supported by the fact that he has very poor mentation causing decrease in oral intake. He had this problem in the past. He was hydrated aggressively and his kidney function seems to be improving with hydration. Thus, this is supportive of prerenal component, which has possibly progressed to acute tubular injury. 2. Possible right paratracheal density, but more likely based on a chest x-ray as well as confirmed by CT scan of the chest. This is a tortuous brachiocephalic vessel. 3. Status post cerebrovascular accident. 4. History of renal calculi. 5. Anemia of chronic disease. 7. History of depression. 8. Paranoid schizophrenia. 9. Essential hypertension. 10. Degenerative joint disease. PLAN: 1. Urinalysis. 2. Urine spot sodium, eosinophils, and creatinine. 3. Renal ultrasound to rule out any obstruction or even calculi. 4. Urine microalbumin to creatinine ratio. 5. Encourage p.o. intake. 6. We will need alternate oral feedings if continues to have very poor oral intake in the form of a gastrostomy tube. [facility]# [id number]
[2018-05-05 04:37] LABS: URINE BILIRUBIN NEGATIVE (NEGATIVE); URINE BLOOD NEGATIVE (NEGATIVE); URINE GLUCOSE (UA) NEGATIVE (NEGATIVE); URINE KETONE NEGATIVE (NEGATIVE); URINE LEUKOCYTE ESTERASE NEGATIVE (NEGATIVE); URINE NITRATE NEGATIVE (NEGATIVE); URINE PROTEIN NEGATIVE (NEGATIVE); URINE SOURCE CLEAN C; URINE UROBILINOGEN 0.2 E.U./dL (0.2 - 1.0)
[2018-05-05 05:49] LABS: AMPHETAMINE URINE NEGATIVE (NEGATIVE); BARBITURATES URINE NEGATIVE (NEGATIVE); BENZODIAZEPINES QUAL URINE NEGATIVE (NEGATIVE); CANNABINOID THC NEGATIVE (NEGATIVE); COCAINE METABOLITE QUAL URINE NEGATIVE (NEGATIVE); METHADONE URINE NEGATIVE (NEGATIVE); METHAMPHETAMINES QUAL URINE NEGATIVE (NEGATIVE); OPIATES (MORPHINE) QUAL. URINE POSITIVE (NEGATIVE); PHENCYCLIDINE (PCP) URINE NEGATIVE (NEGATIVE); TRICYCLICS (TCA) QUAL. URINE NEGATIVE (NEGATIVE)
[2018-05-05 05:50] LABS: URINE CLARITY CLEAR (CLEAR); URINE COLOR YELLOW; URINE MICROSCOPIC INDICATED? YES; URINE RBC NONE SEEN /hpf (0-5)
[2018-05-05 05:51] LABS: URINE BACTERIA FEW /hpf (NONE SEEN); URINE EPITHELIAL CELLS NONE SEEN /lpf (FEW); URINE WBC 0-2 /hpf (0-5)
[2018-05-05 06:33] LABS: EOSINOPHIL SMEAR SOURCE URINE; EOSINOPHILS SMEAR COUNT NONE SEEN (NONE SEEN)
[2018-05-05 06:43] LABS: ANION GAP 10.9 (7.0-16.0); BUN - UREA NITROGEN 27 mg/dL (7-25); CALCIUM SERUM 8.8 mg/dL (8.6-10.3); CARBON DIOXIDE 26.9 mEq/L (21.0-31.0); CHLORIDE 107 mEq/L (98-107); CREATININE - SERUM 1.2 mg/dL (0.7-1.3); GLUCOSE 127 mg/dL (70-105); POTASSIUM SERUM 3.8 mEq/L (3.5-5.1); SODIUM SERUM 141 mEq/L (136-145)
[2018-05-05] MEDS: D5-0.45NS 1,000 ML IV SCH (08:18)
[2018-05-05] MEDS ORDERED: Non-Formulary Item 1 EA (Cranberry Fruit Concentrate [Cranberry] 450 MG) PO SCH (09:00)
[2018-05-05] MEDS ORDERED: BULGARICUS PO SCH (09:00)
[2018-05-05] MEDS ORDERED: LOSARTAN POTASSIUM 100 MG PO SCH (09:00)
[2018-05-05] MEDS ORDERED: ACIDOPHILUS PO SCH (09:00)
--- NOTE | 2018-05-05 09:16 | Diagnostic Imaging Report ---
Renal ultrasound HISTORY: Abnormal renal function test The right kidney measures 9.2 x 4.7 x 4.3 cm. Right 1.3 cm sonolucent lesion noted in the upper pole consistent with a cyst. No hydronephrosis. The left kidney measures 9.4 x 4.9 x 5.0 cm. No focal lesions. No hydronephrosis. The exam of the urinary bladder demonstrates an approximate 6.8 x 3.0 x 6.4 cm hypoechoic density along the posterior wall. Intraluminal mass cannot be excluded. Follow-up is needed. IMPRESSION: 1. Findings that may be associated with a mass within the lumen of urinary bladder. Exact relationship to the adjacent prostate gland is unclear. 2. No hydronephrosis 3. Right renal cyst
[2018-05-05] MEDS: Lactobacillus Rhamnosus GG 15 Billion CFU CAP.SPRINK PO SCH (09:18)
[2018-05-05] MEDS: Ferrous Sulfate 325 MG TAB PO SCH (09:18)
[2018-05-05] MEDS: Calcium Carb/Vit D 500 mg/200 U Tab PO SCH (09:19)
[2018-05-05] MEDS: Aspirin 81mg Chewable Tab PO SCH (10:09)
--- NOTE | 2018-05-05 13:56 | Consultation ---
DATE OF CONSULTATION: 05/04/[address] Santiago for this consultation. HISTORY OF PRESENT ILLNESS: This is an 78-year-old male who is unable to give history. The patient apparently had a chest x-ray that showed possible paratracheal mass, sent here for further evaluation. The patient is unable to give any history. He denies any shortness of breath. Has no cough, dyspnea, or no fever. PAST MEDICAL HISTORY: CVA, dementia, weakness. SOCIAL HISTORY: retirement resident. REVIEW OF SYSTEMS: Unable to obtain because of the patient's condition. PHYSICAL EXAMINATION: GENERAL: Awake, alert, not in acute distress. VITAL SIGNS: Temperature 97.5, pulse 79, respiration is 20, blood pressure 135/78, saturation 95%. HEENT: Atraumatic, normocephalic. Pupils react to light and accommodation. Ears, nose and throat normal. CHEST: There are good breath sounds. No wheezing or crackles. HEART: Regular. ABDOMEN: Soft. EXTREMITIES: No edema. DIAGNOSTIC DATA: Chest x-ray was negative. CT chest done and showed just tortuous aorta. No acute abnormalities and no mass or lymphadenopathy. LABORATORY DATA: WBCs 9.4, hemoglobin ___.7, hematocrit 36.0, platelets is 280, sodium 143, potassium 3.8, BUN 40, creatinine 1.4. IMPRESSION: 1. This is an 78-year-old male with tortuous aorta, looking like mass paratracheally, but that is not evident on the CT of the chest. 2. Cerebrovascular accident. 3. Weakness. PLAN: Continue supportive care. No specific workup is needed at this time for his lungs. JOB# [id number]
--- NOTE | 2018-05-05 15:00 | General Progress Note ---
Subjective - Review of Systems Service Date: 05/05/18 Subjective: sleeping, comfortable Objective - Results Result Diagrams: 05/04/18 05:00 05/05/18 06:08 Recent Labs: Laboratory Last Values WBC 9.4 Th/cmm (4.8-10.8) 05/04/18 05:00 RBC 3.85 Mil/cmm (3.80-5.80) 05/04/18 05:00 Hgb 11.7 gm/dL (12-16) L 05/04/18 05:00 Hct 36.0 % (41.0-60) L 05/04/18 05:00 MCV 93.4 fl (80-99) 05/04/18 05:00 MCH 30.3 pg (27.0-31.0) 05/04/18 05:00 MCHC Differential 32.4 pg (28.0-36.0) 05/04/18 05:00 RDW 12.4 % (11.5-20.0) 05/04/18 05:00 Plt Count 280 Th/cmm (150-400) 05/04/18 05:00 MPV 8.1 fl 05/04/18 05:00 Neutrophils % 74.5 % (40.0-80.0) 05/04/18 05:00 Lymphocytes % 18.1 % (20.0-50.0) L 05/04/18 05:00 Monocytes % 6.1 % (2.0-10.0) 05/04/18 05:00 Eosinophils % 1.1 % (0.0-5.0) 05/04/18 05:00 Basophils % 0.2 % (0.0-2.0) 05/04/18 05:00 Eos Smear Source URINE 05/05/18 03:10 Eos Smear Total Cells NONE SEEN (NONE SEEN) 05/05/18 03:10 Sodium 141 mEq/L (136-145) 05/05/18 06:08 Potassium 3.8 mEq/L (3.5-5.1) 05/05/18 06:08 Chloride 107 mEq/L (98-107) 05/05/18 06:08 Carbon Dioxide 26.9 mEq/L (21.0-31.0) 05/05/18 06:08 Anion Gap 10.9 (7.0-16.0) 05/05/18 06:08 BUN 27 mg/dL (7-25) H 05/05/18 06:08 Creatinine 1.2 mg/dL (0.7-1.3) 05/05/18 06:08 Est GFR ( Amer) TNP 05/05/18 06:08 Est GFR (Non-Af Amer) TNP 05/05/18 06:08 BUN/Creatinine Ratio 22.5 05/05/18 06:08 Glucose 127 mg/dL (70-105) H 05/05/18 06:08 POC Glucose 111 MG/DL (70 - 105) H 05/03/18 22:02 Whole Bld Lactic Acid 1.11 mmol/L (0.60-1.99) 05/03/18 16:35 Calcium 8.8 mg/dL (8.6-10.3) 05/05/18 06:08 Phosphorus 3.6 mg/dL (2.5-5.0) 05/03/18 16:35 Magnesium 2.7 mg/dL (1.9-2.7) 05/03/18 16:35 Total Bilirubin 0.5 mg/dL (0.3-1.0) 05/03/18 16:35 AST 29 U/L (13-39) 05/03/18 16:35 ALT 30 U/L (7-52) 05/03/18 16:35 Alkaline Phosphatase 56 U/L (34-104) 05/03/18 16:35 Total Protein 7.4 gm/dL (6.0-8.3) 05/03/18 16:35 Albumin 3.5 gm/dL (4.2-5.5) L 05/03/18 16:35 Globulin 3.9 gm/dL 05/03/18 16:35 Albumin/Globulin Ratio 0.9 (1.0-1.8) L 05/03/18 16:35 Triglycerides 82 mg/dL (<150) 05/04/18 05:00 Cholesterol 170 mg/dL (<200) 05/04/18 05:00 LDL Cholesterol Direct 119 mg/dL (75-193) 05/04/18 05:00 HDL Cholesterol 41 mg/dL (23-92) 05/04/18 05:00 TSH 0.96 uIU/ml (0.34-5.60) 05/04/18 05:00 Urine Source CLEAN C 05/05/18 03:10 Urine Color YELLOW 05/05/18 03:10 Urine Clarity CLEAR (CLEAR) 05/05/18 03:10 Urine pH 6.0 (4.6 - 8.0) 05/05/18 03:10 Ur Specific [place] 1.025 (1.005-1.030) 05/05/18 03:10 Urine Protein NEGATIVE mg/dL (NEGATIVE) 05/05/18 03:10 Urine Glucose (UA) NEGATIVE mg/dL (NEGATIVE) 05/05/18 03:10 Urine Ketones NEGATIVE mg/dL (NEGATIVE) 05/05/18 03:10 Urine Blood NEGATIVE (NEGATIVE) 05/05/18 03:10 Urine Nitrate NEGATIVE (NEGATIVE) 05/05/18 03:10 Urine Bilirubin NEGATIVE (NEGATIVE) 05/05/18 03:10 Urine Urobilinogen 0.2 E.U./dL (0.2 - 1.0) 05/05/18 03:10 Ur Leukocyte Esterase NEGATIVE (NEGATIVE) 05/05/18 03:10 Urine RBC NONE SEEN /hpf (0-5) 05/05/18 03:10 Urine WBC 0-2 /hpf (0-5) 05/05/18 03:10 Ur Epithelial Cells NONE SEEN /lpf (FEW) 05/05/18 03:10 Urine Bacteria FEW /hpf (NONE SEEN) 05/05/18 03:10 Ur Random Sodium 107 mmol/L 05/05/18 03:10 Urine Creatinine 162.0 mg/dl (39.0-259.0) 05/05/18 03:10 Urine Opiates Screen POSITIVE (NEGATIVE) H 05/05/18 03:10 Urine Methadone Screen NEGATIVE (NEGATIVE) 05/05/18 03:10 Ur Barbiturates Screen NEGATIVE (NEGATIVE) 05/05/18 03:10 Ur Tricyclics Screen NEGATIVE (NEGATIVE) 05/05/18 03:10 Ur Phencyclidine Scrn NEGATIVE (NEGATIVE) 05/05/18 03:10 Amphetamines Screen NEGATIVE (NEGATIVE) 05/05/18 03:10 U Methamphetamines Scrn NEGATIVE (NEGATIVE) 05/05/18 03:10 U Benzodiazepines Scrn NEGATIVE (NEGATIVE) 05/05/18 03:10 U Cocaine Metab Screen NEGATIVE (NEGATIVE) 05/05/18 03:10 U Cannabinoids Screen NEGATIVE (NEGATIVE) 05/05/18 03:10 - Physical Exam Vitals and I&O: Vital Signs Temp 98.2 F 05/05/18 12:51 Pulse 90 05/05/18 12:51 Resp 18 05/05/18 12:51 BP 126/70 05/05/18 12:51 Pulse Ox 96 05/05/18 12:51 Intake & Output 05/04/18 05/05/18 05/05/18 18:59 06:59 18:59 Intake Total 2158.333 1050 Balance 2158.333 1050 Weight (lbs) 71.668 kg 68.039 kg 68.039 kg Intake: Intake, IV Amount 9524.286 2214 Aztreonam 1 gm In 50 50 Dextrose 5% 50 ml @ 100 mls/hr IV Q12HR [facility] Rx#: [id number] D5-0.45NS 1,000 ml @ 125 5478.726 9296 mls/hr IV .Q8H [facility] Rx#: [id number] Oral 200 Other: # Voids 4 # Bowel Movements 0 Weight Source Bedscale Bedscale Bedscale Active Medications: Current Medications Acetaminophen (Tylenol Extra Strength) 500 mg PO Q8H PRN PRN Reason: Pain (Moderate) Stop: 07/03/18 11:22 Acetaminophen (Tylenol) 650 mg PO Q6H PRN PRN Reason: temp.>100.5 Acetaminophen/Hydrocodone Bitart ([place] 10 Mg/325 Mg) 1 tab PO Q4HR PRN PRN Reason: Pain (Severe) Stop: 07/03/18 13:50 Last Admin: 05/04/18 21:58 Dose: 1 tab Aspirin (Aspirin Chewable) 81 mg PO DAILY [facility] Stop: 07/04/18 08:59 Last Admin: 05/05/18 10:09 Dose: 81 mg Bisacodyl (Dulcolax 10 Mg Supp) 10 mg RC DAILY PRN PRN Reason: Constipation Stop: 07/03/18 11:22 Calcium/Vitamin D (Oscal W/Vitamin D) 1 tab PO DAILY [facility] Stop: 07/04/18 08:59 Last Admin: 05/05/18 09:19 Dose: 1 tab Docusate Sodium (Colace) 100 mg PO DAILY [facility] Stop: 07/04/18 08:59 Last Admin: 05/05/18 09:18 Dose: 100 mg Ferrous Sulfate (Iron) 325 mg PO DAILY [facility] Stop: 07/04/18 08:59 Last Admin: 05/05/18 09:18 Dose: 325 mg Aztreonam 1 gm/ Dextrose 50 mls @ 100 mls/hr IV Q12HR [facility] Stop: 07/02/18 20:59 Last Admin: 05/05/18 09:17 Dose: 100 mls/hr Dextrose/Sodium Chloride (D5-0.45ns) 1,000 mls @ 125 mls/hr IV .Q8H [facility] Stop: 07/02/18 23:48 Last Admin: 05/05/18 08:18 Dose: 125 mls/hr Lactobacillus Rhamnosus (Culturelle 15b) 1 each PO DAILY [facility] Stop: 07/04/18 08:59 Last Admin: 05/05/18 09:18 Dose: 1 each Losartan Potassium (Cozaar) 100 mg PO DAILY [facility] Stop: 07/03/18 11:59 Last Admin: 05/05/18 10:09 Dose: Not Given Magnesium Hydroxide (Milk Of Magnesia) 30 ml PO HS PRN PRN Reason: Constipation Stop: 07/03/18 13:50 Olanzapine (Zyprexa) 5 mg PO DAILY [facility]; Protocol Stop: 07/04/18 08:59 Olanzapine (Zyprexa) 10 mg PO HS [facility]; Protocol Stop: 07/03/18 20:59 Promethazine HCl/Dextromethorphan (Phenergan Dm 6.25/15mg-5 Ml) 5 ml PO Q6H PRN PRN Reason: Cough Stop: 07/03/18 13:50 Sodium Phosphate (Fleet Enema) 135 ml RC PRN PRN PRN Reason: Constipation Stop: 07/03/18 13:50 Trazodone HCl (Desyrel) 50 mg PO HS [facility]; Protocol Stop: 07/03/18 20:59 Last Admin: 05/04/18 21:04 Dose: 50 mg General: No acute distress HEENT: Atraumatic, Mucous membr. moist/pink Neck: Supple, +2 carotid pulse wo bruit Cardiovascular: Regular rate, Normal S1, Normal S2 Lungs: Clear to auscultation Abdomen: Bowel sounds, Soft Extremities: no Edema Neurological: Sensation intact Skin: no Rash Psych/Mental Status: Mood NL Assessment/Plan - Assessment Assessment: LACIE Tortuous Brachiocephalic Vessels S/P CVA Hx Renal Calculi Anemia of CD Depression Paranoid Schizo Ess Htn - Plan Plan: Lab - Result Diagrams 05/04/18 05:00 05/05/18 06:08 Current Medications Acetaminophen (Tylenol Extra Strength) 500 mg PO Q8H PRN PRN Reason: Pain (Moderate) Stop: 07/03/18 11:22 Acetaminophen (Tylenol) 650 mg PO Q6H PRN PRN Reason: temp.>100.5 Acetaminophen/Hydrocodone Bitart ([place] 10 Mg/325 Mg) 1 tab PO Q4HR PRN PRN Reason: Pain (Severe) Stop: 07/03/18 13:50 Last Admin: 05/04/18 21:58 Dose: 1 tab Aspirin (Aspirin Chewable) 81 mg PO DAILY [facility] Stop: 07/04/18 08:59 Last Admin: 05/05/18 10:09 Dose: 81 mg Bisacodyl (Dulcolax 10 Mg Supp) 10 mg RC DAILY PRN PRN Reason: Constipation Stop: 07/03/18 11:22 Calcium/Vitamin D (Oscal W/Vitamin D) 1 tab PO DAILY [facility] Stop: 07/04/18 08:59 Last Admin: 05/05/18 09:19 Dose: 1 tab Docusate Sodium (Colace) 100 mg PO DAILY [facility] Stop: 07/04/18 08:59 Last Admin: 05/05/18 09:18 Dose: 100 mg Ferrous Sulfate (Iron) 325 mg PO DAILY [facility] Stop: 07/04/18 08:59 Last Admin: 05/05/18 09:18 Dose: 325 mg Aztreonam 1 gm/ Dextrose 50 mls @ 100 mls/hr IV Q12HR [facility] Stop: 07/02/18 20:59 Last Admin: 05/05/18 09:17 Dose: 100 mls/hr Dextrose/Sodium Chloride (D5-0.45ns) 1,000 mls @ 125 mls/hr IV .Q8H [facility] Stop: 07/02/18 23:48 Last Admin: 05/05/18 08:18 Dose: 125 mls/hr Lactobacillus Rhamnosus (Culturelle 15b) 1 each PO DAILY [facility] Stop: 07/04/18 08:59 Last Admin: 05/05/18 09:18 Dose: 1 each Losartan Potassium (Cozaar) 100 mg PO DAILY [facility] Stop: 07/03/18 11:59 Last Admin: 05/05/18 10:09 Dose: Not Given Magnesium Hydroxide (Milk Of Magnesia) 30 ml PO HS PRN PRN Reason: Constipation Stop: 07/03/18 13:50 Olanzapine (Zyprexa) 5 mg PO DAILY [facility]; Protocol Stop: 07/04/18 08:59 Olanzapine (Zyprexa) 10 mg PO HS [facility]; Protocol Stop: 07/03/18 20:59 Promethazine HCl/Dextromethorphan (Phenergan Dm 6.25/15mg-5 Ml) 5 ml PO Q6H PRN PRN Reason: Cough Stop: 07/03/18 13:50 Sodium Phosphate (Fleet Enema) 135 ml RC PRN PRN PRN Reason: Constipation Stop: 07/03/18 13:50 Trazodone HCl (Desyrel) 50 mg PO HS [facility]; Protocol Stop: 07/03/18 20:59 Last Admin: 05/04/18 21:04 Dose: 50 mg Lab - Result Diagrams 05/04/18 05:00 05/05/18 06:08 Kidney fnc continues to improve w/ BUN/Cr of 27/1.2 decrease IVF encouraged po intake
[2018-05-05] MEDS ORDERED: D5-0.45NS 1,000 ML IV SCH (15:15)
--- NOTE | 2018-05-05 19:58 | General Progress Note ---
Objective - Results Result Diagrams: 05/04/18 05:00 05/05/18 06:08 Recent Labs: Laboratory Last Values WBC 9.4 Th/cmm (4.8-10.8) 05/04/18 05:00 RBC 3.85 Mil/cmm (3.80-5.80) 05/04/18 05:00 Hgb 11.7 gm/dL (12-16) L 05/04/18 05:00 Hct 36.0 % (41.0-60) L 05/04/18 05:00 MCV 93.4 fl (80-99) 05/04/18 05:00 MCH 30.3 pg (27.0-31.0) 05/04/18 05:00 MCHC Differential 32.4 pg (28.0-36.0) 05/04/18 05:00 RDW 12.4 % (11.5-20.0) 05/04/18 05:00 Plt Count 280 Th/cmm (150-400) 05/04/18 05:00 MPV 8.1 fl 05/04/18 05:00 Neutrophils % 74.5 % (40.0-80.0) 05/04/18 05:00 Lymphocytes % 18.1 % (20.0-50.0) L 05/04/18 05:00 Monocytes % 6.1 % (2.0-10.0) 05/04/18 05:00 Eosinophils % 1.1 % (0.0-5.0) 05/04/18 05:00 Basophils % 0.2 % (0.0-2.0) 05/04/18 05:00 Eos Smear Source URINE 05/05/18 03:10 Eos Smear Total Cells NONE SEEN (NONE SEEN) 05/05/18 03:10 Sodium 141 mEq/L (136-145) 05/05/18 06:08 Potassium 3.8 mEq/L (3.5-5.1) 05/05/18 06:08 Chloride 107 mEq/L (98-107) 05/05/18 06:08 Carbon Dioxide 26.9 mEq/L (21.0-31.0) 05/05/18 06:08 Anion Gap 10.9 (7.0-16.0) 05/05/18 06:08 BUN 27 mg/dL (7-25) H 05/05/18 06:08 Creatinine 1.2 mg/dL (0.7-1.3) 05/05/18 06:08 Est GFR ( Amer) TNP 05/05/18 06:08 Est GFR (Non-Af Amer) TNP 05/05/18 06:08 BUN/Creatinine Ratio 22.5 05/05/18 06:08 Glucose 127 mg/dL (70-105) H 05/05/18 06:08 POC Glucose 111 MG/DL (70 - 105) H 05/03/18 22:02 Whole Bld Lactic Acid 1.11 mmol/L (0.60-1.99) 05/03/18 16:35 Calcium 8.8 mg/dL (8.6-10.3) 05/05/18 06:08 Phosphorus 3.6 mg/dL (2.5-5.0) 05/03/18 16:35 Magnesium 2.7 mg/dL (1.9-2.7) 05/03/18 16:35 Total Bilirubin 0.5 mg/dL (0.3-1.0) 05/03/18 16:35 AST 29 U/L (13-39) 05/03/18 16:35 ALT 30 U/L (7-52) 05/03/18 16:35 Alkaline Phosphatase 56 U/L (34-104) 05/03/18 16:35 Total Protein 7.4 gm/dL (6.0-8.3) 05/03/18 16:35 Albumin 3.5 gm/dL (4.2-5.5) L 05/03/18 16:35 Globulin 3.9 gm/dL 05/03/18 16:35 Albumin/Globulin Ratio 0.9 (1.0-1.8) L 05/03/18 16:35 Triglycerides 82 mg/dL (<150) 05/04/18 05:00 Cholesterol 170 mg/dL (<200) 05/04/18 05:00 LDL Cholesterol Direct 119 mg/dL (75-193) 05/04/18 05:00 HDL Cholesterol 41 mg/dL (23-92) 05/04/18 05:00 TSH 0.96 uIU/ml (0.34-5.60) 05/04/18 05:00 Urine Source CLEAN C 05/05/18 03:10 Urine Color YELLOW 05/05/18 03:10 Urine Clarity CLEAR (CLEAR) 05/05/18 03:10 Urine pH 6.0 (4.6 - 8.0) 05/05/18 03:10 Ur Specific [place] 1.025 (1.005-1.030) 05/05/18 03:10 Urine Protein NEGATIVE mg/dL (NEGATIVE) 05/05/18 03:10 Urine Glucose (UA) NEGATIVE mg/dL (NEGATIVE) 05/05/18 03:10 Urine Ketones NEGATIVE mg/dL (NEGATIVE) 05/05/18 03:10 Urine Blood NEGATIVE (NEGATIVE) 05/05/18 03:10 Urine Nitrate NEGATIVE (NEGATIVE) 05/05/18 03:10 Urine Bilirubin NEGATIVE (NEGATIVE) 05/05/18 03:10 Urine Urobilinogen 0.2 E.U./dL (0.2 - 1.0) 05/05/18 03:10 Ur Leukocyte Esterase NEGATIVE (NEGATIVE) 05/05/18 03:10 Urine RBC NONE SEEN /hpf (0-5) 05/05/18 03:10 Urine WBC 0-2 /hpf (0-5) 05/05/18 03:10 Ur Epithelial Cells NONE SEEN /lpf (FEW) 05/05/18 03:10 Urine Bacteria FEW /hpf (NONE SEEN) 05/05/18 03:10 Ur Random Sodium 107 mmol/L 05/05/18 03:10 Urine Creatinine 162.0 mg/dl (39.0-259.0) 05/05/18 03:10 Urine Opiates Screen POSITIVE (NEGATIVE) H 05/05/18 03:10 Urine Methadone Screen NEGATIVE (NEGATIVE) 05/05/18 03:10 Ur Barbiturates Screen NEGATIVE (NEGATIVE) 05/05/18 03:10 Ur Tricyclics Screen NEGATIVE (NEGATIVE) 05/05/18 03:10 Ur Phencyclidine Scrn NEGATIVE (NEGATIVE) 05/05/18 03:10 Amphetamines Screen NEGATIVE (NEGATIVE) 05/05/18 03:10 U Methamphetamines Scrn NEGATIVE (NEGATIVE) 05/05/18 03:10 U Benzodiazepines Scrn NEGATIVE (NEGATIVE) 05/05/18 03:10 U Cocaine Metab Screen NEGATIVE (NEGATIVE) 05/05/18 03:10 U Cannabinoids Screen NEGATIVE (NEGATIVE) 05/05/18 03:10 - Physical Exam Vitals and I&O: Vital Signs Temp 97.8 F 05/05/18 16:04 Pulse 50 05/05/18 16:04 Resp 20 05/05/18 16:04 BP 140/73 05/05/18 16:04 Pulse Ox 95 05/05/18 16:04 Intake & Output 05/05/18 05/05/18 05/06/18 06:59 18:59 06:59 Intake Total 1050 Balance 1050 Weight (lbs) 68.039 kg 68.039 kg Intake: Intake, IV Amount 1050 Aztreonam 1 gm In 50 Dextrose 5% 50 ml @ 100 mls/hr IV Q12HR [facility] Rx#: [id number] D5-0.45NS 1,000 ml @ 125 1000 mls/hr IV .Q8H [facility] Rx#: [id number] Other: Weight Source Bedscale Bedscale Active Medications: Current Medications Acetaminophen (Tylenol Extra Strength) 500 mg PO Q8H PRN PRN Reason: Pain (Moderate) Stop: 07/03/18 11:22 Acetaminophen (Tylenol) 650 mg PO Q6H PRN PRN Reason: temp.>100.5 Acetaminophen/Hydrocodone Bitart ([place] 10 Mg/325 Mg) 1 tab PO Q4HR PRN PRN Reason: Pain (Severe) Stop: 07/03/18 13:50 Last Admin: 05/04/18 21:58 Dose: 1 tab Aspirin (Aspirin Chewable) 81 mg PO DAILY [facility] Stop: 07/04/18 08:59 Last Admin: 05/05/18 10:09 Dose: 81 mg Bisacodyl (Dulcolax 10 Mg Supp) 10 mg RC DAILY PRN PRN Reason: Constipation Stop: 07/03/18 11:22 Calcium/Vitamin D (Oscal W/Vitamin D) 1 tab PO DAILY [facility] Stop: 07/04/18 08:59 Last Admin: 05/05/18 09:19 Dose: 1 tab Docusate Sodium (Colace) 100 mg PO DAILY [facility] Stop: 07/04/18 08:59 Last Admin: 05/05/18 09:18 Dose: 100 mg Ferrous Sulfate (Iron) 325 mg PO DAILY [facility] Stop: 07/04/18 08:59 Last Admin: 05/05/18 09:18 Dose: 325 mg Aztreonam 1 gm/ Dextrose 50 mls @ 100 mls/hr IV Q12HR [facility] Stop: 07/02/18 20:59 Last Admin: 05/05/18 09:17 Dose: 100 mls/hr Dextrose/Sodium Chloride (D5-0.45ns) 1,000 mls @ 75 mls/hr IV .[id number] [facility] Stop: 07/04/18 15:14 Last Admin: 05/05/18 16:39 Dose: 75 mls/hr Lactobacillus Rhamnosus (Culturelle 15b) 1 each PO DAILY [facility] Stop: 07/04/18 08:59 Last Admin: 05/05/18 09:18 Dose: 1 each Losartan Potassium (Cozaar) 100 mg PO DAILY [facility] Stop: 07/03/18 11:59 Last Admin: 05/05/18 10:09 Dose: Not Given Magnesium Hydroxide (Milk Of Magnesia) 30 ml PO HS PRN PRN Reason: Constipation Stop: 07/03/18 13:50 Olanzapine (Zyprexa) 5 mg PO DAILY [facility]; Protocol Stop: 07/04/18 08:59 Olanzapine (Zyprexa) 10 mg PO HS [facility]; Protocol Stop: 07/03/18 20:59 Promethazine HCl/Dextromethorphan (Phenergan Dm 6.25/15mg-5 Ml) 5 ml PO Q6H PRN PRN Reason: Cough Stop: 07/03/18 13:50 Sodium Phosphate (Fleet Enema) 135 ml RC PRN PRN PRN Reason: Constipation Stop: 07/03/18 13:50 Trazodone HCl (Desyrel) 50 mg PO HS [facility]; Protocol Stop: 07/03/18 20:59 Last Admin: 05/04/18 21:04 Dose: 50 mg General: No acute distress HEENT: Atraumatic, Mucous membr. moist/pink Neck: Supple, +2 carotid pulse wo bruit Cardiovascular: Regular rate, Normal S1, Normal S2 Lungs: Clear to auscultation Abdomen: Bowel sounds, Soft Extremities: no Edema Neurological: Sensation intact Skin: no Rash Psych/Mental Status: Mood NL
--- NOTE | 2018-05-05 23:07 | Consultation ---
Consult Note - Consult Note Service Date: 05/05/18 Referring Physician: Siria Santiago Consult Note: PHYSICIAN Consultation Note: Date of Admission: 05/03/18 Purpose of Consultation: Chief Complaint: History of Present Illness: Patient KING WHALEN was admitted to location [facility] with PERITRACHEAL MASS. Past Medical History: Allergies Allergy/AdvReac Type Severity Reaction Status Date / Time No Known Allergies Allergy Verified 04/25/18 09:17 Vital Signs Temp 97.4 F 05/05/18 20:00 Pulse 77 05/05/18 20:00 Resp 18 05/05/18 20:00 BP 143/82 05/05/18 20:00 Pulse Ox 96 05/05/18 20:00 Intake & Output 05/05/18 05/05/18 05/06/18 06:59 18:59 06:59 Intake Total 1050 50 Balance 1050 50 Weight (lbs) 68.039 kg 68.039 kg Intake: Intake, IV Amount 1050 50 Aztreonam 1 gm In 50 50 Dextrose 5% 50 ml @ 100 mls/hr IV Q12HR [facility] Rx#: [id number] D5-0.45NS 1,000 ml @ 125 1000 mls/hr IV .Q8H [facility] Rx#: [id number] Other: Weight Source Bedscale Bedscale Laboratory Results - last 24 hr 05/05/18 05/05/18 05/05/18 03:10 03:10 03:10 Eos Smear Source Eos Smear Total Cells Sodium Potassium Chloride Carbon Dioxide Anion Gap BUN Creatinine Est GFR ( Amer) Est GFR (Non-Af Amer) BUN/Creatinine Ratio Glucose Calcium Urine Source CLEAN C Urine Color YELLOW Urine Clarity CLEAR Urine pH 6.0 Ur Specific [place] 1.025 Urine Protein NEGATIVE Urine Glucose (UA) NEGATIVE Urine Ketones NEGATIVE Urine Blood NEGATIVE Urine Nitrate NEGATIVE Urine Bilirubin NEGATIVE Urine Urobilinogen 0.2 Ur Leukocyte Esterase NEGATIVE Urine RBC NONE SEEN Urine WBC 0-2 Ur Epithelial Cells NONE SEEN Urine Bacteria FEW Ur Random Sodium Urine Creatinine 162.0 Urine Opiates Screen POSITIVE H Urine Methadone Screen NEGATIVE Ur Barbiturates Screen NEGATIVE Ur Tricyclics Screen NEGATIVE Ur Phencyclidine Scrn NEGATIVE Amphetamines Screen NEGATIVE U Methamphetamines Scrn NEGATIVE U Benzodiazepines Scrn NEGATIVE U Cocaine Metab Screen NEGATIVE U Cannabinoids Screen NEGATIVE 05/05/18 05/05/18 05/05/18 03:10 03:10 06:08 Eos Smear Source URINE Eos Smear Total Cells NONE SEEN Sodium 141 Potassium 3.8 Chloride 107 Carbon Dioxide 26.9 Anion Gap 10.9 BUN 27 H Creatinine 1.2 Est GFR ( Amer) TNP Est GFR (Non-Af Amer) TNP BUN/Creatinine Ratio 22.5 Glucose 127 H Calcium 8.8 Urine Source Urine Color Urine Clarity Urine pH Ur Specific [place] Urine Protein Urine Glucose (UA) Urine Ketones Urine Blood Urine Nitrate Urine Bilirubin Urine Urobilinogen Ur Leukocyte Esterase Urine RBC Urine WBC Ur Epithelial Cells Urine Bacteria Ur Random Sodium 107 Urine Creatinine Urine Opiates Screen Urine Methadone Screen Ur Barbiturates Screen Ur Tricyclics Screen Ur Phencyclidine Scrn Amphetamines Screen U Methamphetamines Scrn U Benzodiazepines Scrn U Cocaine Metab Screen U Cannabinoids Screen Home Medication Medication Instructions Recorded Type Acetaminophen [Pain Relief Extra 500 mg PO Q6H PRN 04/25/18 History Strength] Acetaminophen [Pain Reliever] 2 tab PO Q8H PRN 04/25/18 History Acetaminophen [Pain Reliever] 650 mg PO Q6H PRN 04/25/18 History Aspirin [Aspirin Chewable] 1 tab PO DAILY 04/25/18 History Bisacodyl [Dulcolax 10 Mg Supp] 10 mg RC DAILY PRN 04/25/18 History Calcium Carbonate/Vitamin D3 1 tab PO DAILY 04/25/18 History [Calcium 500-Vit D3 200 Tablet] Cranberry Fruit Concentrate 450 mg PO DAILY 04/25/18 History [Cranberry] Docusate Sodium [Colace] 100 mg PO DAILY 04/25/18 History Ferrous Sulfate [Iron] 1 tab PO DAILY 04/25/18 History Fleet Enema 135 ml RC PRN PRN 04/25/18 History Hydrocodone/APAP 10 mg/325 mg 1 tab PO Q4HR PRN 04/25/18 History [[place] 10 mg/325 mg] Losartan Potassium 100 mg PO DAILY 04/25/18 History Magnesium Hydroxide [Milk of 30 ml PO HS PRN 04/25/18 History Magnesia] OLANZapine [ZyPREXA] 5 mg PO DAILY 04/25/18 History OLANZapine [ZyPREXA] 10 mg PO HS 04/25/18 History Trazodone HCl 50 mg PO HS 04/25/18 History L. Acidophilus/L.bulgaricus 1 each PO DAILY 05/03/18 History [Lactobacillus Tablet] Promethazine DM 6.25/15mg-5mL 5 ml PO Q6H PRN 05/03/18 History [Phenergan DM 6.25/15mg-5 mL] cefTRIAXone [Rocephin] 1 gm IV DAILY 05/03/18 History Current Medications Generic Name Dose Route Start Last Admin Trade Name Freq PRN Reason Stop Dose Admin Acetaminophen 500 mg 05/04/18 11:23 Tylenol Extra Strength PO 07/03/18 11:22 Q8H PRN Pain (Moderate) Acetaminophen 650 mg 05/04/18 11:23 Tylenol PO Q6H PRN temp.>100.5 Acetaminophen/Hydrocodone Bitart 1 tab 05/04/18 13:51 05/04/18 21:58 [place] 10 Mg/325 Mg PO 07/03/18 13:50 1 tab Q4HR PRN Administration Pain (Severe) Aspirin 81 mg 05/05/18 09:00 05/05/18 10:09 Aspirin Chewable PO 07/04/18 08:59 81 mg DAILY RANDOLPH Administration Bisacodyl 10 mg 05/04/18 11:23 Dulcolax 10 Mg Supp RC 07/03/18 11:22 DAILY PRN Constipation Calcium/Vitamin D 1 tab 05/05/18 09:00 05/05/18 09:19 Oscal W/Vitamin D PO 07/04/18 08:59 1 tab DAILY RANDOLPH Administration Docusate Sodium 100 mg 05/05/18 09:00 05/05/18 09:18 Colace PO 07/04/18 08:59 100 mg DAILY RANDOLPH Administration Ferrous Sulfate 325 mg 05/05/18 09:00 05/05/18 09:18 Iron PO 07/04/18 08:59 325 mg DAILY RANDOLPH Administration Aztreonam 1 gm/ Dextrose 50 mls @ 100 mls/hr 05/03/18 21:00 05/05/18 21:01 IV 07/02/18 20:59 100 mls/hr Q12HR RANDOLPH Administration Dextrose/Sodium Chloride 1,000 mls @ 75 mls/hr 05/05/18 15:15 05/05/18 16:39 D5-0.45ns IV 07/04/18 15:14 75 mls/hr .[id number] RANDOLPH Administration Lactobacillus Rhamnosus 1 each 05/05/18 09:00 05/05/18 09:18 Culturelle 15b PO 07/04/18 08:59 1 each DAILY RANDOLPH Administration Losartan Potassium 100 mg 05/04/18 12:00 05/05/18 10:09 Cozaar PO 07/03/18 11:59 Not Given DAILY RANDOLPH Magnesium Hydroxide 30 ml 05/04/18 13:51 Milk Of Magnesia PO 07/03/18 13:50 HS PRN Constipation Olanzapine 5 mg 05/05/18 09:00 Zyprexa PO 07/04/18 08:59 DAILY RANDOLPH Protocol Olanzapine 10 mg 05/04/18 21:00 Zyprexa PO 07/03/18 20:59 HS RANDOLPH Protocol Promethazine HCl/Dextromethorphan 5 ml 05/04/18 13:51 Phenergan Dm 6.25/15mg-5 Ml PO 07/03/18 13:50 Q6H PRN Cough Sodium Phosphate 135 ml 05/04/18 13:51 Fleet Enema RC 07/03/18 13:50 PRN PRN Constipation Trazodone HCl 50 mg 05/04/18 21:00 05/05/18 21:00 Desyrel PO 07/03/18 20:59 50 mg HS RANDOLPH Administration Protocol Review of Systems: A 12 point ROS was reviewed with the pertinent positive and negatives noted in the HPI. Social History Smoking Status Unknown if ever smoked Drug Use No Alcohol Use No Family Medical History Family Medical History Start: 05/03/18 22: 09 Freq: ONCE Status: Active Protocol: Document 05/04/18 02:58 ILYA (Rec: 05/04/18 03:24 ILYA [id number]) Family Medical History Father History Unknown Yes Physical Exam: General: HEENT: Neck: Cardio: Respiratory: Abdominal: Genital/Urinary: Extremities: Neurological: Assessment: 1. abnormal cxr. 2. dehydration. Plan: Rubio Clements, Joao Tsang M.D. [id number]
[2018-05-06 06:43] LABS: ANION GAP 11.2 (7.0-16.0); BUN - UREA NITROGEN 21 mg/dL (7-25); CALCIUM SERUM 9.2 mg/dL (8.6-10.3); CARBON DIOXIDE 24.5 mEq/L (21.0-31.0); CHLORIDE 107 mEq/L (98-107); CREATININE - SERUM 1.2 mg/dL (0.7-1.3); GLUCOSE 141 mg/dL (70-105); POTASSIUM SERUM 3.7 mEq/L (3.5-5.1); SODIUM SERUM 139 mEq/L (136-145)
[2018-05-06] MEDS: Ferrous Sulfate 325 MG TAB PO SCH (09:49)
[2018-05-06] MEDS: Lactobacillus Rhamnosus GG 15 Billion CFU CAP.SPRINK PO SCH (09:49)
[2018-05-06] MEDS: Aspirin 81mg Chewable Tab PO SCH (09:49)
[2018-05-06] MEDS: Calcium Carb/Vit D 500 mg/200 U Tab PO SCH (09:49)
--- NOTE | 2018-05-06 11:16 | General Progress Note ---
Subjective - Review of Systems Service Date: 05/06/18 Subjective: not in pain Objective - Results Result Diagrams: 05/04/18 05:00 05/06/18 05:20 Recent Labs: Laboratory Last Values WBC 9.4 Th/cmm (4.8-10.8) 05/04/18 05:00 RBC 3.85 Mil/cmm (3.80-5.80) 05/04/18 05:00 Hgb 11.7 gm/dL (12-16) L 05/04/18 05:00 Hct 36.0 % (41.0-60) L 05/04/18 05:00 MCV 93.4 fl (80-99) 05/04/18 05:00 MCH 30.3 pg (27.0-31.0) 05/04/18 05:00 MCHC Differential 32.4 pg (28.0-36.0) 05/04/18 05:00 RDW 12.4 % (11.5-20.0) 05/04/18 05:00 Plt Count 280 Th/cmm (150-400) 05/04/18 05:00 MPV 8.1 fl 05/04/18 05:00 Neutrophils % 74.5 % (40.0-80.0) 05/04/18 05:00 Lymphocytes % 18.1 % (20.0-50.0) L 05/04/18 05:00 Monocytes % 6.1 % (2.0-10.0) 05/04/18 05:00 Eosinophils % 1.1 % (0.0-5.0) 05/04/18 05:00 Basophils % 0.2 % (0.0-2.0) 05/04/18 05:00 Eos Smear Source URINE 05/05/18 03:10 Eos Smear Total Cells NONE SEEN (NONE SEEN) 05/05/18 03:10 Sodium 139 mEq/L (136-145) 05/06/18 05:20 Potassium 3.7 mEq/L (3.5-5.1) 05/06/18 05:20 Chloride 107 mEq/L (98-107) 05/06/18 05:20 Carbon Dioxide 24.5 mEq/L (21.0-31.0) 05/06/18 05:20 Anion Gap 11.2 (7.0-16.0) 05/06/18 05:20 BUN 21 mg/dL (7-25) 05/06/18 05:20 Creatinine 1.2 mg/dL (0.7-1.3) 05/06/18 05:20 Est GFR ( Amer) TNP 05/06/18 05:20 Est GFR (Non-Af Amer) TNP 05/06/18 05:20 BUN/Creatinine Ratio 17.5 05/06/18 05:20 Glucose 141 mg/dL (70-105) H 05/06/18 05:20 POC Glucose 111 MG/DL (70 - 105) H 05/03/18 22:02 Whole Bld Lactic Acid 1.11 mmol/L (0.60-1.99) 05/03/18 16:35 Calcium 9.2 mg/dL (8.6-10.3) 05/06/18 05:20 Phosphorus 3.6 mg/dL (2.5-5.0) 05/03/18 16:35 Magnesium 2.7 mg/dL (1.9-2.7) 05/03/18 16:35 Total Bilirubin 0.5 mg/dL (0.3-1.0) 05/03/18 16:35 AST 29 U/L (13-39) 05/03/18 16:35 ALT 30 U/L (7-52) 05/03/18 16:35 Alkaline Phosphatase 56 U/L (34-104) 05/03/18 16:35 Total Protein 7.4 gm/dL (6.0-8.3) 05/03/18 16:35 Albumin 3.5 gm/dL (4.2-5.5) L 05/03/18 16:35 Globulin 3.9 gm/dL 05/03/18 16:35 Albumin/Globulin Ratio 0.9 (1.0-1.8) L 05/03/18 16:35 Triglycerides 82 mg/dL (<150) 05/04/18 05:00 Cholesterol 170 mg/dL (<200) 05/04/18 05:00 LDL Cholesterol Direct 119 mg/dL (75-193) 05/04/18 05:00 HDL Cholesterol 41 mg/dL (23-92) 05/04/18 05:00 TSH 0.96 uIU/ml (0.34-5.60) 05/04/18 05:00 Urine Source CLEAN C 05/05/18 03:10 Urine Color YELLOW 05/05/18 03:10 Urine Clarity CLEAR (CLEAR) 05/05/18 03:10 Urine pH 6.0 (4.6 - 8.0) 05/05/18 03:10 Ur Specific [place] 1.025 (1.005-1.030) 05/05/18 03:10 Urine Protein NEGATIVE mg/dL (NEGATIVE) 05/05/18 03:10 Urine Glucose (UA) NEGATIVE mg/dL (NEGATIVE) 05/05/18 03:10 Urine Ketones NEGATIVE mg/dL (NEGATIVE) 05/05/18 03:10 Urine Blood NEGATIVE (NEGATIVE) 05/05/18 03:10 Urine Nitrate NEGATIVE (NEGATIVE) 05/05/18 03:10 Urine Bilirubin NEGATIVE (NEGATIVE) 05/05/18 03:10 Urine Urobilinogen 0.2 E.U./dL (0.2 - 1.0) 05/05/18 03:10 Ur Leukocyte Esterase NEGATIVE (NEGATIVE) 05/05/18 03:10 Urine RBC NONE SEEN /hpf (0-5) 05/05/18 03:10 Urine WBC 0-2 /hpf (0-5) 05/05/18 03:10 Ur Epithelial Cells NONE SEEN /lpf (FEW) 05/05/18 03:10 Urine Bacteria FEW /hpf (NONE SEEN) 05/05/18 03:10 Ur Random Sodium 107 mmol/L 05/05/18 03:10 Urine Creatinine 162.0 mg/dl (39.0-259.0) 05/05/18 03:10 Microalb/Creat Ratio 13.6 mg/g creat (0.0-30.0) 05/05/18 03:10 Urine Opiates Screen POSITIVE (NEGATIVE) H 05/05/18 03:10 Urine Methadone Screen NEGATIVE (NEGATIVE) 05/05/18 03:10 Ur Barbiturates Screen NEGATIVE (NEGATIVE) 05/05/18 03:10 Ur Tricyclics Screen NEGATIVE (NEGATIVE) 05/05/18 03:10 Ur Phencyclidine Scrn NEGATIVE (NEGATIVE) 05/05/18 03:10 Amphetamines Screen NEGATIVE (NEGATIVE) 05/05/18 03:10 U Methamphetamines Scrn NEGATIVE (NEGATIVE) 05/05/18 03:10 U Benzodiazepines Scrn NEGATIVE (NEGATIVE) 05/05/18 03:10 U Cocaine Metab Screen NEGATIVE (NEGATIVE) 05/05/18 03:10 U Cannabinoids Screen NEGATIVE (NEGATIVE) 05/05/18 03:10 - Physical Exam Vitals and I&O: Vital Signs Temp 98.1 F 05/06/18 04:00 Pulse 92 05/06/18 09:48 Resp 18 05/06/18 08:00 BP 144/93 05/06/18 09:48 Pulse Ox 96 05/06/18 04:00 Intake & Output 05/05/18 05/06/18 05/06/18 18:59 06:59 18:59 Intake Total 50 Balance 50 Weight (lbs) 68.039 kg 68.039 kg Intake: Intake, IV Amount 50 Aztreonam 1 gm In 50 Dextrose 5% 50 ml @ 100 mls/hr IV Q12HR [facility] Rx#: [id number] Other: # Voids 2 # Bowel Movements 0 Weight Source Bedscale Bedscale Active Medications: Current Medications Acetaminophen (Tylenol Extra Strength) 500 mg PO Q8H PRN PRN Reason: Pain (Moderate) Stop: 07/03/18 11:22 Acetaminophen (Tylenol) 650 mg PO Q6H PRN PRN Reason: temp.>100.5 Acetaminophen/Hydrocodone Bitart ([place] 10 Mg/325 Mg) 1 tab PO Q4HR PRN PRN Reason: Pain (Severe) Stop: 07/03/18 13:50 Last Admin: 05/04/18 21:58 Dose: 1 tab Aspirin (Aspirin Chewable) 81 mg PO DAILY [facility] Stop: 07/04/18 08:59 Last Admin: 05/06/18 09:49 Dose: 81 mg Bisacodyl (Dulcolax 10 Mg Supp) 10 mg RC DAILY PRN PRN Reason: Constipation Stop: 07/03/18 11:22 Calcium/Vitamin D (Oscal W/Vitamin D) 1 tab PO DAILY [facility] Stop: 07/04/18 08:59 Last Admin: 05/06/18 09:49 Dose: 1 tab Docusate Sodium (Colace) 100 mg PO DAILY [facility] Stop: 07/04/18 08:59 Last Admin: 05/06/18 09:49 Dose: 100 mg Ferrous Sulfate (Iron) 325 mg PO DAILY [facility] Stop: 07/04/18 08:59 Last Admin: 05/06/18 09:49 Dose: 325 mg Dextrose/Sodium Chloride (D5-0.45ns) 1,000 mls @ 75 mls/hr IV .[id number] [facility] Stop: 07/04/18 15:14 Last Admin: 05/05/18 16:39 Dose: 75 mls/hr Lactobacillus Rhamnosus (Culturelle 15b) 1 each PO DAILY [facility] Stop: 07/04/18 08:59 Last Admin: 05/06/18 09:49 Dose: 1 each Losartan Potassium (Cozaar) 100 mg PO DAILY [facility] Stop: 07/03/18 11:59 Last Admin: 05/06/18 09:48 Dose: 100 mg Magnesium Hydroxide (Milk Of Magnesia) 30 ml PO HS PRN PRN Reason: Constipation Stop: 07/03/18 13:50 Olanzapine (Zyprexa) 5 mg PO DAILY [facility]; Protocol Stop: 07/04/18 08:59 Olanzapine (Zyprexa) 10 mg PO HS [facility]; Protocol Stop: 07/03/18 20:59 Promethazine HCl/Dextromethorphan (Phenergan Dm 6.25/15mg-5 Ml) 5 ml PO Q6H PRN PRN Reason: Cough Stop: 07/03/18 13:50 Sodium Phosphate (Fleet Enema) 135 ml RC PRN PRN PRN Reason: Constipation Stop: 07/03/18 13:50 Trazodone HCl (Desyrel) 50 mg PO HS [facility]; Protocol Stop: 07/03/18 20:59 Last Admin: 05/05/18 21:00 Dose: 50 mg General: No acute distress HEENT: Atraumatic, Mucous membr. moist/pink Neck: Supple, +2 carotid pulse wo bruit Cardiovascular: Regular rate, Normal S1, Normal S2 Lungs: Clear to auscultation Abdomen: Bowel sounds, Soft Extremities: no Edema Neurological: Sensation intact Skin: no Rash Psych/Mental Status: Mood NL Assessment/Plan - Assessment Assessment: * Paratracheal fullness; No evidence of paratracheal mass. * Anemia ; awaiting result of weathers
--- NOTE | 2018-05-06 13:22 | General Progress Note ---
Subjective - Review of Systems Service Date: 05/06/18 Subjective: sleeping, comfortable Objective - Results Result Diagrams: 05/04/18 05:00 05/06/18 05:20 Recent Labs: Laboratory Last Values WBC 9.4 Th/cmm (4.8-10.8) 05/04/18 05:00 RBC 3.85 Mil/cmm (3.80-5.80) 05/04/18 05:00 Hgb 11.7 gm/dL (12-16) L 05/04/18 05:00 Hct 36.0 % (41.0-60) L 05/04/18 05:00 MCV 93.4 fl (80-99) 05/04/18 05:00 MCH 30.3 pg (27.0-31.0) 05/04/18 05:00 MCHC Differential 32.4 pg (28.0-36.0) 05/04/18 05:00 RDW 12.4 % (11.5-20.0) 05/04/18 05:00 Plt Count 280 Th/cmm (150-400) 05/04/18 05:00 MPV 8.1 fl 05/04/18 05:00 Neutrophils % 74.5 % (40.0-80.0) 05/04/18 05:00 Lymphocytes % 18.1 % (20.0-50.0) L 05/04/18 05:00 Monocytes % 6.1 % (2.0-10.0) 05/04/18 05:00 Eosinophils % 1.1 % (0.0-5.0) 05/04/18 05:00 Basophils % 0.2 % (0.0-2.0) 05/04/18 05:00 Eos Smear Source URINE 05/05/18 03:10 Eos Smear Total Cells NONE SEEN (NONE SEEN) 05/05/18 03:10 Sodium 139 mEq/L (136-145) 05/06/18 05:20 Potassium 3.7 mEq/L (3.5-5.1) 05/06/18 05:20 Chloride 107 mEq/L (98-107) 05/06/18 05:20 Carbon Dioxide 24.5 mEq/L (21.0-31.0) 05/06/18 05:20 Anion Gap 11.2 (7.0-16.0) 05/06/18 05:20 BUN 21 mg/dL (7-25) 05/06/18 05:20 Creatinine 1.2 mg/dL (0.7-1.3) 05/06/18 05:20 Est GFR ( Amer) TNP 05/06/18 05:20 Est GFR (Non-Af Amer) TNP 05/06/18 05:20 BUN/Creatinine Ratio 17.5 05/06/18 05:20 Glucose 141 mg/dL (70-105) H 05/06/18 05:20 POC Glucose 111 MG/DL (70 - 105) H 05/03/18 22:02 Whole Bld Lactic Acid 1.11 mmol/L (0.60-1.99) 05/03/18 16:35 Calcium 9.2 mg/dL (8.6-10.3) 05/06/18 05:20 Phosphorus 3.6 mg/dL (2.5-5.0) 05/03/18 16:35 Magnesium 2.7 mg/dL (1.9-2.7) 05/03/18 16:35 Total Bilirubin 0.5 mg/dL (0.3-1.0) 05/03/18 16:35 AST 29 U/L (13-39) 05/03/18 16:35 ALT 30 U/L (7-52) 05/03/18 16:35 Alkaline Phosphatase 56 U/L (34-104) 05/03/18 16:35 Total Protein 7.4 gm/dL (6.0-8.3) 05/03/18 16:35 Albumin 3.5 gm/dL (4.2-5.5) L 05/03/18 16:35 Globulin 3.9 gm/dL 05/03/18 16:35 Albumin/Globulin Ratio 0.9 (1.0-1.8) L 05/03/18 16:35 Triglycerides 82 mg/dL (<150) 05/04/18 05:00 Cholesterol 170 mg/dL (<200) 05/04/18 05:00 LDL Cholesterol Direct 119 mg/dL (75-193) 05/04/18 05:00 HDL Cholesterol 41 mg/dL (23-92) 05/04/18 05:00 TSH 0.96 uIU/ml (0.34-5.60) 05/04/18 05:00 Urine Source CLEAN C 05/05/18 03:10 Urine Color YELLOW 05/05/18 03:10 Urine Clarity CLEAR (CLEAR) 05/05/18 03:10 Urine pH 6.0 (4.6 - 8.0) 05/05/18 03:10 Ur Specific [place] 1.025 (1.005-1.030) 05/05/18 03:10 Urine Protein NEGATIVE mg/dL (NEGATIVE) 05/05/18 03:10 Urine Glucose (UA) NEGATIVE mg/dL (NEGATIVE) 05/05/18 03:10 Urine Ketones NEGATIVE mg/dL (NEGATIVE) 05/05/18 03:10 Urine Blood NEGATIVE (NEGATIVE) 05/05/18 03:10 Urine Nitrate NEGATIVE (NEGATIVE) 05/05/18 03:10 Urine Bilirubin NEGATIVE (NEGATIVE) 05/05/18 03:10 Urine Urobilinogen 0.2 E.U./dL (0.2 - 1.0) 05/05/18 03:10 Ur Leukocyte Esterase NEGATIVE (NEGATIVE) 05/05/18 03:10 Urine RBC NONE SEEN /hpf (0-5) 05/05/18 03:10 Urine WBC 0-2 /hpf (0-5) 05/05/18 03:10 Ur Epithelial Cells NONE SEEN /lpf (FEW) 05/05/18 03:10 Urine Bacteria FEW /hpf (NONE SEEN) 05/05/18 03:10 Ur Random Sodium 107 mmol/L 05/05/18 03:10 Urine Creatinine 162.0 mg/dl (39.0-259.0) 05/05/18 03:10 Microalb/Creat Ratio 13.6 mg/g creat (0.0-30.0) 05/05/18 03:10 Urine Opiates Screen POSITIVE (NEGATIVE) H 05/05/18 03:10 Urine Methadone Screen NEGATIVE (NEGATIVE) 05/05/18 03:10 Ur Barbiturates Screen NEGATIVE (NEGATIVE) 05/05/18 03:10 Ur Tricyclics Screen NEGATIVE (NEGATIVE) 05/05/18 03:10 Ur Phencyclidine Scrn NEGATIVE (NEGATIVE) 05/05/18 03:10 Amphetamines Screen NEGATIVE (NEGATIVE) 05/05/18 03:10 U Methamphetamines Scrn NEGATIVE (NEGATIVE) 05/05/18 03:10 U Benzodiazepines Scrn NEGATIVE (NEGATIVE) 05/05/18 03:10 U Cocaine Metab Screen NEGATIVE (NEGATIVE) 05/05/18 03:10 U Cannabinoids Screen NEGATIVE (NEGATIVE) 05/05/18 03:10 - Physical Exam Vitals and I&O: Vital Signs Temp 98.1 F 05/06/18 04:00 Pulse 92 05/06/18 09:48 Resp 18 05/06/18 08:00 BP 144/93 05/06/18 09:48 Pulse Ox 96 05/06/18 04:00 Intake & Output 05/05/18 05/06/18 05/06/18 18:59 06:59 18:59 Intake Total 50 Balance 50 Weight (lbs) 68.039 kg 68.039 kg Intake: Intake, IV Amount 50 Aztreonam 1 gm In 50 Dextrose 5% 50 ml @ 100 mls/hr IV Q12HR [facility] Rx#: [id number] Other: # Voids 2 # Bowel Movements 0 Weight Source Bedscale Bedscale Active Medications: Current Medications Acetaminophen (Tylenol Extra Strength) 500 mg PO Q8H PRN PRN Reason: Pain (Moderate) Stop: 07/03/18 11:22 Acetaminophen (Tylenol) 650 mg PO Q6H PRN PRN Reason: temp.>100.5 Acetaminophen/Hydrocodone Bitart ([place] 10 Mg/325 Mg) 1 tab PO Q4HR PRN PRN Reason: Pain (Severe) Stop: 07/03/18 13:50 Last Admin: 05/04/18 21:58 Dose: 1 tab Aspirin (Aspirin Chewable) 81 mg PO DAILY [facility] Stop: 07/04/18 08:59 Last Admin: 05/06/18 09:49 Dose: 81 mg Bisacodyl (Dulcolax 10 Mg Supp) 10 mg RC DAILY PRN PRN Reason: Constipation Stop: 07/03/18 11:22 Calcium/Vitamin D (Oscal W/Vitamin D) 1 tab PO DAILY [facility] Stop: 07/04/18 08:59 Last Admin: 05/06/18 09:49 Dose: 1 tab Docusate Sodium (Colace) 100 mg PO DAILY [facility] Stop: 07/04/18 08:59 Last Admin: 05/06/18 09:49 Dose: 100 mg Ferrous Sulfate (Iron) 325 mg PO DAILY [facility] Stop: 07/04/18 08:59 Last Admin: 05/06/18 09:49 Dose: 325 mg Dextrose/Sodium Chloride (D5-0.45ns) 1,000 mls @ 75 mls/hr IV .[id number] [facility] Stop: 07/04/18 15:14 Last Admin: 05/05/18 16:39 Dose: 75 mls/hr Lactobacillus Rhamnosus (Culturelle 15b) 1 each PO DAILY [facility] Stop: 07/04/18 08:59 Last Admin: 05/06/18 09:49 Dose: 1 each Losartan Potassium (Cozaar) 100 mg PO DAILY [facility] Stop: 07/03/18 11:59 Last Admin: 05/06/18 09:48 Dose: 100 mg Magnesium Hydroxide (Milk Of Magnesia) 30 ml PO HS PRN PRN Reason: Constipation Stop: 07/03/18 13:50 Olanzapine (Zyprexa) 5 mg PO DAILY [facility]; Protocol Stop: 07/04/18 08:59 Olanzapine (Zyprexa) 10 mg PO HS [facility]; Protocol Stop: 07/03/18 20:59 Promethazine HCl/Dextromethorphan (Phenergan Dm 6.25/15mg-5 Ml) 5 ml PO Q6H PRN PRN Reason: Cough Stop: 07/03/18 13:50 Sodium Phosphate (Fleet Enema) 135 ml RC PRN PRN PRN Reason: Constipation Stop: 07/03/18 13:50 Trazodone HCl (Desyrel) 50 mg PO HS [facility]; Protocol Stop: 07/03/18 20:59 Last Admin: 05/05/18 21:00 Dose: 50 mg General: No acute distress HEENT: Atraumatic, Mucous membr. moist/pink Neck: Supple, +2 carotid pulse wo bruit Cardiovascular: Regular rate, Normal S1, Normal S2 Lungs: Clear to auscultation Abdomen: Bowel sounds, Soft Extremities: no Edema Neurological: Sensation intact Skin: no Rash Psych/Mental Status: Mood NL Assessment/Plan - Assessment Assessment: LACIE much improved Tortuous Brachiocephalic Vessels S/P CVA Hx Renal Calculi Anemia of CD Depression Paranoid Schizo Ess Htn - Plan Plan: Lab - Result Diagrams 05/04/18 05:00 05/05/18 06:08 Current Medications Acetaminophen (Tylenol Extra Strength) 500 mg PO Q8H PRN PRN Reason: Pain (Moderate) Stop: 07/03/18 11:22 Acetaminophen (Tylenol) 650 mg PO Q6H PRN PRN Reason: temp.>100.5 Acetaminophen/Hydrocodone Bitart ([place] 10 Mg/325 Mg) 1 tab PO Q4HR PRN PRN Reason: Pain (Severe) Stop: 07/03/18 13:50 Last Admin: 05/04/18 21:58 Dose: 1 tab Aspirin (Aspirin Chewable) 81 mg PO DAILY [facility] Stop: 07/04/18 08:59 Last Admin: 05/05/18 10:09 Dose: 81 mg Bisacodyl (Dulcolax 10 Mg Supp) 10 mg RC DAILY PRN PRN Reason: Constipation Stop: 07/03/18 11:22 Calcium/Vitamin D (Oscal W/Vitamin D) 1 tab PO DAILY [facility] Stop: 07/04/18 08:59 Last Admin: 05/05/18 09:19 Dose: 1 tab Docusate Sodium (Colace) 100 mg PO DAILY [facility] Stop: 07/04/18 08:59 Last Admin: 05/05/18 09:18 Dose: 100 mg Ferrous Sulfate (Iron) 325 mg PO DAILY [facility] Stop: 07/04/18 08:59 Last Admin: 05/05/18 09:18 Dose: 325 mg Aztreonam 1 gm/ Dextrose 50 mls @ 100 mls/hr IV Q12HR [facility] Stop: 07/02/18 20:59 Last Admin: 05/05/18 09:17 Dose: 100 mls/hr Dextrose/Sodium Chloride (D5-0.45ns) 1,000 mls @ 125 mls/hr IV .Q8H [facility] Stop: 07/02/18 23:48 Last Admin: 05/05/18 08:18 Dose: 125 mls/hr Lactobacillus Rhamnosus (Culturelle 15b) 1 each PO DAILY [facility] Stop: 07/04/18 08:59 Last Admin: 05/05/18 09:18 Dose: 1 each Losartan Potassium (Cozaar) 100 mg PO DAILY [facility] Stop: 07/03/18 11:59 Last Admin: 05/05/18 10:09 Dose: Not Given Magnesium Hydroxide (Milk Of Magnesia) 30 ml PO HS PRN PRN Reason: Constipation Stop: 07/03/18 13:50 Olanzapine (Zyprexa) 5 mg PO DAILY [facility]; Protocol Stop: 07/04/18 08:59 Olanzapine (Zyprexa) 10 mg PO HS [facility]; Protocol Stop: 07/03/18 20:59 Promethazine HCl/Dextromethorphan (Phenergan Dm 6.25/15mg-5 Ml) 5 ml PO Q6H PRN PRN Reason: Cough Stop: 07/03/18 13:50 Sodium Phosphate (Fleet Enema) 135 ml RC PRN PRN PRN Reason: Constipation Stop: 07/03/18 13:50 Trazodone HCl (Desyrel) 50 mg PO HS [facility]; Protocol Stop: 07/03/18 20:59 Last Admin: 05/04/18 21:04 Dose: 50 mg Lab - Result Diagrams 05/04/18 05:00 05/06/18 05:20 Kidney fnc continues to improve w/ BUN/Cr of 21/1.2 decrease IVF encouraged po intake
--- NOTE | 2018-05-06 16:56 | Internal Medicine Prog Note ---
Internal Medicine Subjective - Subjective Patient seen and examined:: chart reviewed Patient is:: awake Per staff patient has:: no adverse event Internal Medicine Objective - Results Result Diagrams: 05/04/18 05:00 05/06/18 05:20 Recent Labs: Laboratory Last Values WBC 9.4 Th/cmm (4.8-10.8) 05/04/18 05:00 RBC 3.85 Mil/cmm (3.80-5.80) 05/04/18 05:00 Hgb 11.7 gm/dL (12-16) L 05/04/18 05:00 Hct 36.0 % (41.0-60) L 05/04/18 05:00 MCV 93.4 fl (80-99) 05/04/18 05:00 MCH 30.3 pg (27.0-31.0) 05/04/18 05:00 MCHC Differential 32.4 pg (28.0-36.0) 05/04/18 05:00 RDW 12.4 % (11.5-20.0) 05/04/18 05:00 Plt Count 280 Th/cmm (150-400) 05/04/18 05:00 MPV 8.1 fl 05/04/18 05:00 Neutrophils % 74.5 % (40.0-80.0) 05/04/18 05:00 Lymphocytes % 18.1 % (20.0-50.0) L 05/04/18 05:00 Monocytes % 6.1 % (2.0-10.0) 05/04/18 05:00 Eosinophils % 1.1 % (0.0-5.0) 05/04/18 05:00 Basophils % 0.2 % (0.0-2.0) 05/04/18 05:00 Eos Smear Source URINE 05/05/18 03:10 Eos Smear Total Cells NONE SEEN (NONE SEEN) 05/05/18 03:10 Sodium 139 mEq/L (136-145) 05/06/18 05:20 Potassium 3.7 mEq/L (3.5-5.1) 05/06/18 05:20 Chloride 107 mEq/L (98-107) 05/06/18 05:20 Carbon Dioxide 24.5 mEq/L (21.0-31.0) 05/06/18 05:20 Anion Gap 11.2 (7.0-16.0) 05/06/18 05:20 BUN 21 mg/dL (7-25) 05/06/18 05:20 Creatinine 1.2 mg/dL (0.7-1.3) 05/06/18 05:20 Est GFR ( Amer) TNP 05/06/18 05:20 Est GFR (Non-Af Amer) TNP 05/06/18 05:20 BUN/Creatinine Ratio 17.5 05/06/18 05:20 Glucose 141 mg/dL (70-105) H 05/06/18 05:20 POC Glucose 111 MG/DL (70 - 105) H 05/03/18 22:02 Whole Bld Lactic Acid 1.11 mmol/L (0.60-1.99) 05/03/18 16:35 Calcium 9.2 mg/dL (8.6-10.3) 05/06/18 05:20 Phosphorus 3.6 mg/dL (2.5-5.0) 05/03/18 16:35 Magnesium 2.7 mg/dL (1.9-2.7) 05/03/18 16:35 Total Bilirubin 0.5 mg/dL (0.3-1.0) 05/03/18 16:35 AST 29 U/L (13-39) 05/03/18 16:35 ALT 30 U/L (7-52) 05/03/18 16:35 Alkaline Phosphatase 56 U/L (34-104) 05/03/18 16:35 Total Protein 7.4 gm/dL (6.0-8.3) 05/03/18 16:35 Albumin 3.5 gm/dL (4.2-5.5) L 05/03/18 16:35 Globulin 3.9 gm/dL 05/03/18 16:35 Albumin/Globulin Ratio 0.9 (1.0-1.8) L 05/03/18 16:35 Triglycerides 82 mg/dL (<150) 05/04/18 05:00 Cholesterol 170 mg/dL (<200) 05/04/18 05:00 LDL Cholesterol Direct 119 mg/dL (75-193) 05/04/18 05:00 HDL Cholesterol 41 mg/dL (23-92) 05/04/18 05:00 TSH 0.96 uIU/ml (0.34-5.60) 05/04/18 05:00 Urine Source CLEAN C 05/05/18 03:10 Urine Color YELLOW 05/05/18 03:10 Urine Clarity CLEAR (CLEAR) 05/05/18 03:10 Urine pH 6.0 (4.6 - 8.0) 05/05/18 03:10 Ur Specific [place] 1.025 (1.005-1.030) 05/05/18 03:10 Urine Protein NEGATIVE mg/dL (NEGATIVE) 05/05/18 03:10 Urine Glucose (UA) NEGATIVE mg/dL (NEGATIVE) 05/05/18 03:10 Urine Ketones NEGATIVE mg/dL (NEGATIVE) 05/05/18 03:10 Urine Blood NEGATIVE (NEGATIVE) 05/05/18 03:10 Urine Nitrate NEGATIVE (NEGATIVE) 05/05/18 03:10 Urine Bilirubin NEGATIVE (NEGATIVE) 05/05/18 03:10 Urine Urobilinogen 0.2 E.U./dL (0.2 - 1.0) 05/05/18 03:10 Ur Leukocyte Esterase NEGATIVE (NEGATIVE) 05/05/18 03:10 Urine RBC NONE SEEN /hpf (0-5) 05/05/18 03:10 Urine WBC 0-2 /hpf (0-5) 05/05/18 03:10 Ur Epithelial Cells NONE SEEN /lpf (FEW) 05/05/18 03:10 Urine Bacteria FEW /hpf (NONE SEEN) 05/05/18 03:10 Ur Random Sodium 107 mmol/L 05/05/18 03:10 Urine Creatinine 162.0 mg/dl (39.0-259.0) 05/05/18 03:10 Microalb/Creat Ratio 13.6 mg/g creat (0.0-30.0) 05/05/18 03:10 Urine Opiates Screen POSITIVE (NEGATIVE) H 05/05/18 03:10 Urine Methadone Screen NEGATIVE (NEGATIVE) 05/05/18 03:10 Ur Barbiturates Screen NEGATIVE (NEGATIVE) 05/05/18 03:10 Ur Tricyclics Screen NEGATIVE (NEGATIVE) 05/05/18 03:10 Ur Phencyclidine Scrn NEGATIVE (NEGATIVE) 05/05/18 03:10 Amphetamines Screen NEGATIVE (NEGATIVE) 05/05/18 03:10 U Methamphetamines Scrn NEGATIVE (NEGATIVE) 05/05/18 03:10 U Benzodiazepines Scrn NEGATIVE (NEGATIVE) 05/05/18 03:10 U Cocaine Metab Screen NEGATIVE (NEGATIVE) 05/05/18 03:10 U Cannabinoids Screen NEGATIVE (NEGATIVE) 05/05/18 03:10 - Physical Exam Vitals and I&O: Vital Signs Temp 98.0 F 05/06/18 16:30 Pulse 80 05/06/18 16:30 Resp 17 05/06/18 16:30 BP 141/79 05/06/18 16:30 Pulse Ox 97 05/06/18 16:30 Intake & Output 05/05/18 05/06/18 05/06/18 18:59 06:59 18:59 Intake Total 50 Balance 50 Weight (lbs) 68.039 kg 68.039 kg Intake: Intake, IV Amount 50 Aztreonam 1 gm In 50 Dextrose 5% 50 ml @ 100 mls/hr IV Q12HR [facility] Rx#: [id number] Other: # Voids 2 # Bowel Movements 0 Weight Source Bedscale Bedscale Active Medications: Current Medications Acetaminophen (Tylenol Extra Strength) 500 mg PO Q8H PRN PRN Reason: Pain (Moderate) Stop: 07/03/18 11:22 Acetaminophen (Tylenol) 650 mg PO Q6H PRN PRN Reason: temp.>100.5 Acetaminophen/Hydrocodone Bitart (Combs 10 Mg/325 Mg) 1 tab PO Q4HR PRN PRN Reason: Pain (Severe) Stop: 07/03/18 13:50 Last Admin: 05/04/18 21:58 Dose: 1 tab Aspirin (Aspirin Chewable) 81 mg PO DAILY [facility] Stop: 07/04/18 08:59 Last Admin: 05/06/18 09:49 Dose: 81 mg Bisacodyl (Dulcolax 10 Mg Supp) 10 mg RC DAILY PRN PRN Reason: Constipation Stop: 07/03/18 11:22 Calcium/Vitamin D (Oscal W/Vitamin D) 1 tab PO DAILY [facility] Stop: 07/04/18 08:59 Last Admin: 05/06/18 09:49 Dose: 1 tab Docusate Sodium (Colace) 100 mg PO DAILY [facility] Stop: 07/04/18 08:59 Last Admin: 05/06/18 09:49 Dose: 100 mg Ferrous Sulfate (Iron) 325 mg PO DAILY [facility] Stop: 07/04/18 08:59 Last Admin: 05/06/18 09:49 Dose: 325 mg Dextrose/Sodium Chloride (D5-0.45ns) 1,000 mls @ 75 mls/hr IV .[id number] [facility] Stop: 07/04/18 15:14 Last Admin: 05/05/18 16:39 Dose: 75 mls/hr Lactobacillus Rhamnosus (Culturelle 15b) 1 each PO DAILY [facility] Stop: 07/04/18 08:59 Last Admin: 05/06/18 09:49 Dose: 1 each Losartan Potassium (Cozaar) 100 mg PO DAILY [facility] Stop: 07/03/18 11:59 Last Admin: 05/06/18 09:48 Dose: 100 mg Magnesium Hydroxide (Milk Of Magnesia) 30 ml PO HS PRN PRN Reason: Constipation Stop: 07/03/18 13:50 Olanzapine (Zyprexa) 5 mg PO DAILY [facility]; Protocol Stop: 07/04/18 08:59 Olanzapine (Zyprexa) 10 mg PO HS [facility]; Protocol Stop: 07/03/18 20:59 Promethazine HCl/Dextromethorphan (Phenergan Dm 6.25/15mg-5 Ml) 5 ml PO Q6H PRN PRN Reason: Cough Stop: 07/03/18 13:50 Sodium Phosphate (Fleet Enema) 135 ml RC PRN PRN PRN Reason: Constipation Stop: 07/03/18 13:50 Trazodone HCl (Desyrel) 50 mg PO HS [facility]; Protocol Stop: 07/03/18 20:59 Last Admin: 05/05/18 21:00 Dose: 50 mg General: NAD HEENT: NC/AT Neck: Supple Lungs: CTAB Cardiovascular: RRR, Normal S1, Normal S2 Abdomen: soft, non-tender Extremities: clear, edema Neurological: no change Internal Medicine Assmt/Plan - Assessment Assessment: ACUTE DEHYDRATION WORSENING RENAL FAILURE FAILURE TO THRIVE H/O CVA KIDNEY STONES - Plan Plan: PER ORDER SHEET
[2018-05-07 06:09] LABS: FERRITIN 339 ng/mL (30-400); IRON LC 32 ug/dL (38-169); TIBC (LC) 171 ug/dL (250-450); UIBC 139 ug/dL (111-343)
== END 2018-05-06 21:05 | DRG 683 ==
LOC: ER 15:32 → MSI 20:10
PROVIDERS: ADMIT Internal Medicine; ATTEND Internal Medicine
DX: N17.0 Acute kidney failure with tubular necrosis (principal); F20.0 Paranoid schizophrenia; E86.0 Dehydration; R62.7 Adult failure to thrive; I10 Essential (primary) hypertension; D63.8 Anemia in other chronic diseases classified elsewhere; I51.7 Cardiomegaly; I77.819 Aortic ectasia, unspecified site; M19.90 Unspecified osteoarthritis, unspecified site; K57.30 Diverticulosis of large intestine without perforation or abscess without bleeding; I77.1 Stricture of artery; Z79.82 Long term (current) use of aspirin; Z86.73 Personal history of transient ischemic attack (TIA), and cerebral infarction without residual deficits
CPT/HCPCS: 36415-UA; 71045-TC; 71250-TC; 76770-TC; 80048-TC; 80053-TC; 80061-TC; 80307; 81001-TC; 81015-TC; 82043-90; 82105-90; 82570-TC; 82607-90; 82728-90; 82746-90; 82948-90; 83540-90; 83550-90; 83605; 83735-TC; 84100-TC; 84153-90; 84300-TC; 84443-TC; 85025-TC; 93005; J3490; Z7610